=== PATIENT | male | born 1955 | race Caucasian/White ===

== ENCOUNTER 2019-05-20 08:47 | Observation (INO) ==
[2019-05-20] MEDS ORDERED: 0.9 % Sodium Chloride 1,000 ML IVC ONE (09:04)
[2019-05-20] MEDS ORDERED: Ondansetron 4 MG/2 ML VIAL IVP ONE ×3 (09:04→15:32)
--- NOTE | 2019-05-20 09:14 | Emergency Department Note ---
Disposition Clinical Impression: DARREL (acute kidney injury) Nausea & vomiting Qualifiers: Vomiting type: unspecified Vomiting Intractability: non-intractable Qualified Code(s): R11.2 - Nausea with vomiting, unspecified Disposition: Admitted As Inpatient Condition: Good Time of Disposition: 21:18 General Adult HPI - General Chief complaint: ED Nausea/Vomiting/Diarrhea Stated complaint: Nausea and vomiting Time Seen by Provider: 05/20/19 09:01 Source: family Limitations: no limitations - History of Present Illness Pain Scale: 6 - Related Data Home Medications Medication Instructions Recorded Confirmed Albuterol Sulfate [Ventolin Hfa] 2 puff IH Q4H PRN #0 03/28/16 05/20/19 Aspirin 81 mg PO DAILY 03/28/16 05/20/19 Atorvastatin [Lipitor] 80 mg PO HS 03/28/16 05/20/19 Budesonide/Formoterol 80/4.5 2 puff IH Q12H 03/28/16 05/20/19 [Symbicort 80/4.5] Carvedilol [Coreg] 6.25 mg PO BIDWM 03/28/16 05/20/19 Cholecalciferol (Vitamin D3) 3,000 unit PO DAILY 03/28/16 05/20/19 [Vitamin D3] Clopidogrel [Plavix] 75 mg PO DAILY 03/28/16 05/20/19 Lisinopril 10 mg PO DAILY 03/28/16 05/20/19 Nitroglycerin [Nitrostat] 0.4 mg SL Q5M PRN 03/28/16 05/20/19 [place]-3/Dha/Epa/Fish Oil [Fish Oil 1,200 mg PO DAILY #0 03/28/16 05/20/19 1,000 mg Softgel] Ranolazine [Ranexa] 1,000 mg PO BID 03/28/16 05/20/19 raNITIdine HCl [Zantac] 150 mg PO HS 03/28/16 05/20/19 metFORMIN [Glucophage] 500 mg PO DAILY 11/27/16 05/20/19 hydroCHLOROthiazide 50 mg PO DAILY 03/14/19 05/20/19 [Hydrochlorothiazide] Isosorbide MONOnitrate [Isosorbide 10 mg PO TID 05/20/19 05/20/19 Mononitrate] Montelukast [Singulair] 10 mg PO DAILY 05/20/19 05/20/19 Allergies Allergy/AdvReac Type Severity Reaction Status Date / Time Sulfa (Sulfonamide Allergy Rash Verified 03/28/16 04:50 Antibiotics) isosorbide [From Imdur] AdvReac Cramping Verified 03/28/16 04:50 of the Muscles Past Medical History - Past Medical History Medical history: Reports: asthma, cancer, coronary artery disease, GERD, hyperlipidemia, hypertension, kidney stones, myocardial infarction Surgical history: Reports: angioplasty/stent, cholecystectomy Psychiatric history: Reports: no psych history - Social History Smoking Status: Never smoker Smokeless Tobacco Status: No Alcohol use: Reports: none Drug use: Reports: none Physical Exam - General Limitations: no limitations Course Vital Signs Temperature 97.5 F L 05/20/19 08:51 Pulse Rate 61 05/20/19 08:51 Respiratory Rate 18 05/20/19 08:51 Blood Pressure 135/79 05/20/19 08:51 O2 Sat by Pulse Oximetry 100 05/20/19 08:51 Temperature 97.9 F 05/20/19 19:12 Pulse Rate 58 05/20/19 19:12 Respiratory Rate 16 05/20/19 19:12 Blood Pressure 134/74 05/20/19 19:12 O2 Sat by Pulse Oximetry 98 05/20/19 19:12 Oxygen Delivery Oxygen Delivery Room Air Medical Decision Making - Lab Data Result diagrams: 05/20/19 09:20 05/20/19 09:20 Lab Results 05/20/19 05/20/19 05/20/19 Range/Units 09:20 09:20 10:15 WBC 5.6 (4.3-11.1) K/mcL RBC 4.33 (4.19-5.50) M/mcL Hgb 12.5 L (12.9-16.9) g/dL Hct 38.6 (37.5-50.1) % MCV 89.1 (83.0-100.0) fL MCH 28.9 (28.0-33.3) pg MCHC 32.4 (31.6-35.5) g/dL RDW 14.0 (11.5-14.5) % Plt Count 203 (140-400) K/mcL MPV 9.5 (9.4-12.4) fL Immature Gran % 0.5 (0-4) % Seg Neutrophils % 75.2 % Lymphocytes % 14.8 % Monocytes % 7.3 % Eosinophils % 1.8 % Basophils % 0.4 % Neutrophils # 4.2 (1.6-8.9) K/mcL Lymphocytes # 0.8 (0.6-4.6) K/mcL Monocytes # 0.4 (0.0-1.3) K/mcL Eosinophils # 0.1 (0.0-0.6) K/mcL Basophils # 0.0 (0.0-0.2) K/mcL Sodium 138 (136-145) mEq/L Potassium 4.3 (3.5-5.1) mEq/L Chloride 101 (98-107) mEq/L Carbon Dioxide 28 (23-29) mEq/L BUN 41 H (8-23) mg/dL Creatinine 2.20 H (0.70-1.30) mg/dL Est GFR ( Amer) 37 L (> 60) Est GFR (Non-Af Amer) 31 L (> 60) BUN/Creatinine Ratio 19 (6-26) Glucose 118 H (70-105) mg/dL Calculated Osmolality 297 (280-300) Calcium 9.7 (8.6-10.3) mg/dL Total Bilirubin 0.6 (0.3-1.0) mg/dL AST 17 (13-39) Units/L ALT 19 (7-52) Units/L Alkaline Phosphatase 54 (34-104) Units/L Troponin I < 0.03 (< 0.04) ng/mL Serum Total Protein 6.3 L (6.4-8.9) g/dL Albumin 4.0 (3.5-5.7) g/dL Globulin 2.3 L (2.4-3.5) g/dL Albumin/Globulin Ratio 1.7 (1.1-2.2) Lipase 19 (11-82) Units/L Urine Color Yellow (Yellow) Urine Clarity Clear (Clear) Urine pH 5.5 (5.0-8.0) pH Units Ur Specific [place] 1.019 (1.010-1.025) Urine Protein Trace (Neg-Trace) mg/dL Urine Glucose (UA) Normal (Normal) mg/dL Urine Ketones Negative (Negative) mg/dL Urine Blood Negative (Negative) Urine Nitrite Negative (Negative) Urine Bilirubin Negative (Negative) Urine Urobilinogen Normal (Normal) mg/dL Ur Leukocyte Esterase Trace H (Negative) Urine Microscopic RBC 3-5 H (0-3) per hpf Urine Microscopic WBC 0-3 (0-3) per hpf Ur Squamous Epith Cells Many H (None-Few) per lpf Urine Bacteria None Seen (None-Few) per hpf Hyaline Casts Few (None-Few) per lpf Ur Culture Indicated? YES A (NO) Attestation Statement - Attestation Attestation: I reviewed the residents documentation and agree with the residents assessment and plan of care. I have personally had face to face time with the patient. (B rief History, Brief Exam, and MDM) I personally supervised and was present for the queen/critical portions of the following procedures completed by the resident: (add procedures performed here). Face to face time provided Patient arrives complaining of nausea and vomiting. He appears in no acute distress on exam. Triage note and vitals reviewed by me. Patient evaluated in conjunction with the resident physician Dr. Butterfield I attest to supervising the resident physician's interpretation of the ECG
--- NOTE | 2019-05-20 09:35 | Emergency Department Note ---
Disposition Clinical Impression: DARREL (acute kidney injury) Nausea & vomiting Qualifiers: Vomiting type: unspecified Vomiting Intractability: non-intractable Qualified Code(s): R11.2 - Nausea with vomiting, unspecified Disposition: Admitted As Inpatient Condition: Good Forms: ED Satisfaction Letter Time of Disposition: 10:50 General Adult HPI - General Chief complaint: ED Nausea/Vomiting/Diarrhea Stated complaint: Nausea and vomiting Time Seen by Provider: 05/20/19 09:01 Source: patient, family Mode of arrival: ambulatory Limitations: no limitations Nursing Notes Reviewed: Yes Vital Signs Reviewed: Yes - History of Present Illness HPI Narrative: Patient is a 63-year-old male that presents emergency Department with reports of abdominal pain and vomiting. Patient states that he has a history of vomiting and has been treated by his primary care provider. Patient states that he has a history of acid reflux and was initially on omeprazole and has been changed to a different medication and something that coats his stomach. Patient states this has provided relief however over the last 3 or 4 days he has had continued vomiting. Patient states that he has not had any blood in his vomit. Patient states that he has epigastric and left upper quadrant abdominal pain. Patient denies any diarrhea. Patient denies any recent sick contacts. Patient denies any recent travel. Patient states that he has not having any chest pain or shortness of breath. Patient states that he is not having any burning sensation like he usually does with his reflux. Pain Scale: 6 - Related Data Home Medications Medication Instructions Recorded Confirmed Albuterol Sulfate [Ventolin Hfa] 2 puff IH Q4H PRN #0 03/28/16 03/14/19 Aspirin 81 mg PO DAILY 03/28/16 03/14/19 Atorvastatin [Lipitor] 80 mg PO HS 03/28/16 03/14/19 Budesonide/Formoterol 80/4.5 2 puff IH Q12H 03/28/16 03/14/19 [Symbicort 80/4.5] Carvedilol [Coreg] 6.25 mg PO BIDWM 03/28/16 03/14/19 Cholecalciferol (Vitamin D3) 3,000 unit PO DAILY 03/28/16 03/14/19 [Vitamin D3] Clopidogrel [Plavix] 75 mg PO DAILY 03/28/16 03/14/19 Lisinopril 10 mg PO DAILY 03/28/16 03/14/19 Nitroglycerin [Nitrostat] 0.4 mg SL Q5M PRN 03/28/16 03/14/19 [place]-3/Dha/Epa/Fish Oil [Fish Oil 1,200 mg PO DAILY #0 03/28/16 03/14/19 1,000 mg Softgel] Ranolazine [Ranexa] 1,000 mg PO BID 03/28/16 03/14/19 raNITIdine HCl [Zantac] 150 mg PO HS 03/28/16 03/14/19 metFORMIN [Glucophage] 500 mg PO DAILY 11/27/16 03/14/19 hydroCHLOROthiazide 50 mg PO DAILY 03/14/19 03/14/19 [Hydrochlorothiazide] Isosorbide MONOnitrate [Isosorbide 10 mg PO TID 05/20/19 05/20/19 Mononitrate] Montelukast [Singulair] 10 mg PO DAILY 05/20/19 05/20/19 Allergies Allergy/AdvReac Type Severity Reaction Status Date / Time Sulfa (Sulfonamide Allergy Rash Verified 03/28/16 04:50 Antibiotics) isosorbide [From Imdur] AdvReac Cramping Verified 03/28/16 04:50 of the Muscles All systems ED: reviewed and negative except as stated. Constitutional: Reports: fever Cardiovascular: Denies: chest pain Respiratory: Denies: dyspnea Gastrointestinal: Reports: abdominal pain, nausea, vomiting. Denies: diarrhea Genitourinary: Denies: urgency, dysuria, frequency Neurological: Denies: weakness, numbness, paresthesias Past Medical History - Past Medical History Medical history: Reports: asthma, cancer, coronary artery disease, GERD, hyperlipidemia, hypertension, kidney stones, myocardial infarction Surgical history: Reports: angioplasty/stent, cholecystectomy Psychiatric history: Reports: no psych history - Social History Smoking Status: Never smoker Smokeless Tobacco Status: No Alcohol use: Reports: none Drug use: Reports: none Physical Exam - General Limitations: no limitations General appearance: alert, in no apparent distress - Head Head exam: atraumatic, normocephalic - Eye Eye exam: Present: normal appearance, EOMI - Neck Neck exam: Present: normal inspection, full ROM, trachea midline - Respiratory Respiratory exam: Present: normal lung sounds bilaterally. Absent: respiratory distress, wheezes - Abdominal Exam Abdominal exam: Present: soft, tenderness, normal bowel sounds Abdominal tenderness: Present: LUQ, epigastrium, moderate - Neurological Exam Neurological exam: Present: alert, oriented X3 - Psychiatric Psychiatric exam: Present: normal affect, normal mood - Skin Skin exam: Present: warm, dry, intact Course Vital Signs Temperature 97.5 F L 05/20/19 08:51 Pulse Rate 61 05/20/19 08:51 Respiratory Rate 18 05/20/19 08:51 Blood Pressure 135/79 05/20/19 08:51 O2 Sat by Pulse Oximetry 100 05/20/19 08:51 Temperature 97.5 F L 05/20/19 08:51 Pulse Rate 61 05/20/19 08:51 Respiratory Rate 18 05/20/19 08:51 Blood Pressure 135/79 05/20/19 08:51 O2 Sat by Pulse Oximetry 100 05/20/19 08:51 Oxygen Delivery Oxygen Delivery Room Air Medical Decision Making - MDM Narrative Medical decision making narrative: Due the patient presents emergency Department with reports of abdominal pain as well as nausea and vomiting we will obtain basic laboratory testing, CT scan of the abdomen and pelvis provide the patient with IV hydration and antiemetics. Patient has evidence of an acute kidney injury. The main of his laboratory testing is relatively unremarkable. A urinalysis was pending at the time of admission. I called and spoke with the admitting hospitalist Dr. Raphael and she is accepted the patient to their service. Patient be admitted to the hospital this time for further evaluation and management. The patient was offered a GI cocktail here in the emergency department but he did decline due to concern that it may make him throw up. - Medical Records Medical records reviewed: Yes I reviewed the patient's medical records. - Lab Data Lab results reviewed: Yes I reviewed the patient's lab results. Result diagrams: 05/20/19 09:20 05/20/19 09:20 Lab Results 05/20/19 05/20/19 Range/Units 09:20 09:20 WBC 5.6 (4.3-11.1) K/mcL RBC 4.33 (4.19-5.50) M/mcL Hgb 12.5 L (12.9-16.9) g/dL Hct 38.6 (37.5-50.1) % MCV 89.1 (83.0-100.0) fL MCH 28.9 (28.0-33.3) pg MCHC 32.4 (31.6-35.5) g/dL RDW 14.0 (11.5-14.5) % Plt Count 203 (140-400) K/mcL MPV 9.5 (9.4-12.4) fL Immature Gran % 0.5 (0-4) % Seg Neutrophils % 75.2 % Lymphocytes % 14.8 % Monocytes % 7.3 % Eosinophils % 1.8 % Basophils % 0.4 % Neutrophils # 4.2 (1.6-8.9) K/mcL Lymphocytes # 0.8 (0.6-4.6) K/mcL Monocytes # 0.4 (0.0-1.3) K/mcL Eosinophils # 0.1 (0.0-0.6) K/mcL Basophils # 0.0 (0.0-0.2) K/mcL Sodium 138 (136-145) mEq/L Potassium 4.3 (3.5-5.1) mEq/L Chloride 101 (98-107) mEq/L Carbon Dioxide 28 (23-29) mEq/L BUN 41 H (8-23) mg/dL Creatinine 2.20 H (0.70-1.30) mg/dL Est GFR ( Amer) 37 L (> 60) Est GFR (Non-Af Amer) 31 L (> 60) BUN/Creatinine Ratio 19 (6-26) Glucose 118 H (70-105) mg/dL Calculated Osmolality 297 (280-300) Calcium 9.7 (8.6-10.3) mg/dL Total Bilirubin 0.6 (0.3-1.0) mg/dL AST 17 (13-39) Units/L ALT 19 (7-52) Units/L Alkaline Phosphatase 54 (34-104) Units/L Troponin I < 0.03 (< 0.04) ng/mL Serum Total Protein 6.3 L (6.4-8.9) g/dL Albumin 4.0 (3.5-5.7) g/dL Globulin 2.3 L (2.4-3.5) g/dL Albumin/Globulin Ratio 1.7 (1.1-2.2) Lipase 19 (11-82) Units/L - Radiology Data Radiology results reviewed: Yes I reviewed the patient's radiology results. Abdomen/Pelvis CT 05/20/19 09:24 IMPRESSION: No acute non contrast abnormality of the abdomen or pelvis. D/ / Vladislav Kirkpatrick MD / Vladislav Kirkpatrick MD Interpreting Provider: Vladislav Kirkpatrick MD - EKG Data EKG #1 EKG attestation: Yes I reviewed and interpreted this EKG. EKG results narrative: EKG shows a sinus rhythm at a rate of 54 bpm, UT interval of 227, QRS duration 103, QTC of 416. There is no evidence of STEMI on EKG. This is compared to previous EKG on 03/14/19.
[2019-05-20 09:38] LABS: Basophils % 0.4 %; Eosinophils # 0.1 K/mcL (0.0-0.6); Eosinophils % 1.8 %; Hematocrit 38.6 % (37.5-50.1); Hemoglobin 12.5 g/dL (12.9-16.9); Immature Granulocytes % 0.5 % (0-4); Lymphocytes # 0.8 K/mcL (0.6-4.6); Lymphocytes % 14.8 %; Mean Corpuscular HGB Conc 32.4 g/dL (31.6-35.5); Mean Corpuscular Hemoglobin 28.9 pg (28.0-33.3); Mean Corpuscular Volume 89.1 fL (83.0-100.0); Mean Platelet Volume 9.5 fL (9.4-12.4); Monocytes # 0.4 K/mcL (0.0-1.3); Monocytes % 7.3 %; Neutrophils # 4.2 K/mcL (1.6-8.9); Platelet Count 203 K/mcL (140-400); Red Blood Count 4.33 M/mcL (4.19-5.50); Segmented Neutrophils % 75.2 %; White Blood Count 5.6 K/mcL (4.3-11.1)
[2019-05-20 09:50] LABS: Alanine Aminotransferase 19 Units/L (7-52); Albumin/Globulin Ratio 1.7 (1.1-2.2); Alkaline Phosphatase 54 Units/L (34-104); Aspartate Amino Transferase 17 Units/L (13-39); BUN/Creatinine Ratio 19 (6-26); Bilirubin,Total 0.6 mg/dL (0.3-1.0); Blood Urea Nitrogen 41 mg/dL (8-23); Calcium 9.7 mg/dL (8.6-10.3); Carbon Dioxide 28 mEq/L (23-29); Chloride 101 mEq/L (98-107); Globulin 2.3 g/dL (2.4-3.5); Glucose 118 mg/dL (70-105); Osmolality,Calculated 297 (280-300); Potassium 4.3 mEq/L (3.5-5.1); Sodium 138 mEq/L (136-145); Total Protein 6.3 g/dL (6.4-8.9); eGFR For African Americans 37 (> 60); eGFR For Non-African Americans 31 (> 60)
[2019-05-20 09:58] LABS: Troponin I < 0.03 ng/mL (< 0.04)
[2019-05-20 10:39] LABS: Lipase 19 Units/L (11-82)
[2019-05-20 10:49] LABS: Bilirubin,Urine Negative (Negative); Blood,Urine Negative (Negative); Clarity,Urine Clear (Clear); Color,Urine Yellow (Yellow); Glucose,Urine (UA) Normal (Normal); Ketones,Urine Negative (Negative); Leukocyte Esterase,Urine Trace (Negative); Nitrite,Urine Negative (Negative); PH,Urine 5.5 pH Units (5.0-8.0); Protein,Urine Trace mg/dL (Neg-Trace); Specific Gravity,Urine 1.019 (1.010-1.025); Urobilinogen,Urine Normal (Normal)
[2019-05-20 10:52] LABS: Bacteria,Urine None Seen per hpf (None-Few); Hyaline Casts,Urine Few per lpf (None-Few); Squamous Epithelial Cell,Urine Many per lpf (None-Few); WBC,Urine 0-3 per hpf (0-3)
[2019-05-20] MEDS ORDERED: Naloxone 0.4 MG/ML INJ IVP PRN (12:01)
--- NOTE | 2019-05-20 12:01 | Internal Med History&Physical ---
Date of Encounter: 05/20/19 Time of Encounter: 12:01 Internal Medicine - H&P: HPI Chief complaint: abdominal pain and vomiting History of present illness: Mr. Hicks is a 63 year old male with PMH of patient who presented with abdominal pain and vomiting that lasted for the last 3 weeks. The patient stated that he was evaluated by the his primary care provider who treated him with omeprazole and carafate was temporary relief. The patient stated that for the last several days he started experiencing progressive worsening of nausea associated with nonbilious nonbloody vomiting as well as left upper quadrant pain. The patient was evaluated by the ER staff and he is a relative echo suggestive of acute kidney injury. The patient denies diarrhea, hematochezia, melena and change of urinary habits. The patient was admitted for further evaluation and management o f persistent nausea and vomiting and acute kidney injury. Past Med Surg Social Fam HX - Past Medical History Medical history: asthma, cancer, coronary artery disease, GERD, hyperlipidemia, hypertension, kidney stones, myocardial infarction Additional medical history: skin cancer, heart attack, hiatal hernia, kidney stone, Barretts esophagus Psychiatric history: no psych history - Past Surgical History Surgical History: angioplasty/stent, cholecystectomy Additional surgical history: egd, esophagus stretched - Social History Smoking Status: Never smoker Smokeless Tobacco Status: No Alcohol use: none Drug use: none - Family History Mother Hx Family Cardiac Disorders: Yes Father Hx Family Cardiac Disorders: Yes Hx Family Cancer: Yes (bladder) Internal Medicine - H&P: Meds Aspirin 81 mg PO DAILY 03/28/16 [History] Atorvastatin [Lipitor] 80 mg PO HS 03/28/16 [History] Budesonide/Formoterol 80/4.5 [Symbicort 80/4.5] 2 puff IH BID 03/28/16 [H istory] Carvedilol [Coreg] 6.25 mg PO BIDWM 03/28/16 [History] Cholecalciferol (Vitamin D3) [Vitamin D3] 3,000 unit PO DAILY 03/28/16 [History] Clopidogrel [Plavix] 75 mg PO DAILY 03/28/16 [History] Lisinopril 10 mg PO DAILY 03/28/16 [History] Nitroglycerin [Nitrostat] 0.4 mg SL Q5M PRN 03/28/16 [History] [place]-3/Dha/Epa/Fish Oil [Fish Oil 1,000 mg Softgel] 1,200 mg PO DAILY #0 03/28/16 [History] Ranolazine [Ranexa] 1,000 mg PO BID 03/28/16 [History] metFORMIN [Glucophage] 500 mg PO DAILY 11/27/16 [History] Montelukast [Singulair] 10 mg PO DAILY PRN 05/20/19 [History] Albuterol Sulfate [Proair Hfa] 2 puff IH Q4H PRN 05/21/19 [History] Isosorbide DInitrate [Isosorbide Dinitrate] 10 mg PO TID 05/21/19 [History] Ranitidine HCl [Acid [employer]] 150 mg PO DAILY 05/21/19 [History] Omeprazole [PriLOSEC] 40 mg PO BID #60 cap 05/24/19 [Rx] Ondansetron HCl [Zofran] 4 mg PO Q8HR PRN #20 tab 05/24/19 [Rx] Sucralfate [Carafate] 1 gm PO QIDAC #120 tablet 05/24/19 [Rx] Allergy/AdvReac Type Severity Reaction Status Date / Time Sulfa (Sulfonamide Allergy Rash Verified 05/21/19 12:37 Antibiotics) isosorbide [From Imdur] AdvReac Cramping Verified 05/21/19 12:37 of the Muscles All Systems PM: A 10-system review of systems was performed and is negative for pertinent findings except as documented above in the HPI. - Constitutional Vitals: Temp Pulse Resp BP Pulse Ox 97.5 F L 55 18 111/77 100 05/20/19 08:51 05/20/19 11:01 05/20/19 11:01 05/20/19 11:01 05/20/19 11:01 General appearance: Present: A&O X 3 Exam: ` - Neck Neck exam general surgery: Present: supple, trachea midline. Absent: lymphadenopathy - Respiratory Respiratory exam: Present: CTAB. Absent: accessory muscle use, rales, rhonchi, wheezes - Cardiovascular Cardiovascular exam: Present: RRR, +S1, +S2. Absent: diastolic murmur, gallop, rubs, systolic murmur - GI/Abdominal GI/Abdominal exam: Present: normal bowel sounds, soft, no peritoneal signs. Absent: distended, tenderness - Extremities Exam Extremities exam: Present: warm, radial pulses palpable and symmetrical. Absent: calf tenderness, cyanotic, pedal edema Internal Med - H&P Results - Labs CBC & Chem 7: 05/22/19 03:36 05/24/19 06:38 Labs: Short CBC 05/20/19 Range/Units 09:20 WBC 5.6 (4.3-11.1) K/mcL Hgb 12.5 L (12.9-16.9) g/dL Hct 38.6 (37.5-50.1) % Plt Count 203 (140-400) K/mcL Neutrophils # 4.2 (1.6-8.9) K/mcL BMP 05/20/19 09:20 Sodium 138 Potassium 4.3 Chloride 101 Carbon Dioxide 28 BUN 41 H Creatinine 2.20 H Glucose 118 H Calcium 9.7 Cardiac Enzymes 05/20/19 Range/Units 09:20 Troponin I < 0.03 (< 0.04) ng/mL Liver Function 05/20/19 Range/Units 09:20 Total Bilirubin 0.6 (0.3-1.0) mg/dL AST 17 (13-39) Units/L ALT 19 (7-52) Units/L Alkaline Phosphatase 54 (34-104) Units/L Albumin 4.0 (3.5-5.7) g/dL Urine 05/20/19 Range/Units 10:15 Urine Color Yellow (Yellow) Urine Clarity Clear (Clear) Urine pH 5.5 (5.0-8.0) pH Units Ur Specific [place] 1.019 (1.010-1.025) Urine Protein Trace (Neg-Trace) mg/dL Urine Glucose (UA) Normal (Normal) mg/dL - Impressions ITS Impressions Abdomen/Pelvis CT 05/20/19 09:24 IMPRESSION: No acute non contrast abnormality of the abdomen or pelvis. D/ / Vladislav Kirkpatrick MD / Vladislav Kirkpatrick MD Interpreting Provider: Vladislav Kirkpatrick MD - Assessment and Plan (1) Nausea & vomiting Status: Acute Assessment and plan: CT abdomen pelvis without IV or oral contrast showed no acute abnormalities. - We will start Patient currently on IV PPI and IV antiemetic for nausea. - GI was consulted for further evaluation Qualifiers: Vomiting type: unspecified Vomiting Intractability: non-intractable Qualified Code(s): R11.2 - Nausea with vomiting, unspecified (2) DARREL (acute kidney injury) Status: Acute Assessment and plan: most likely secondary to volume depletion in the setting of nausea and vomiting and decreased oral intake, as well as being on diuretic regimen and YENY inhibi tors. Will start patient on cautious IV hydration with isotonic saline and giving his underlying cardiac disease. hold diuretics and yeny inhibitors for now. Renal dosing of medication as per current GFR. Avoid nephrotoxins meds. (3) Hypertension Status: Chronic Assessment and plan: N/V DD *Gastroenteritis *Gastritis *PUD *Pancreatitis *Cholecystitis *Diverticulitis *UTI PLAN: - IVF - Urine C+S - CBCD, BMP in am - Zofran (ondansetron) PRN - GI consulted N they stated that they will see patient in consult, however if patient's symptoms is controlled while inpatient they might consider scheduling his endoscopy as an outpatient. Qualifiers: Hypertension type: essential hypertension Qualified Code(s): I10 - Essential (primary) hypertension (4) Asthma Status: Chronic Assessment and plan: we'll continue home medications Qualifiers: Asthma severity: unspecified severity Asthma complication type: uncomplicated Qualified Code(s): J45.909 - Unspecified asthma, uncomplicated (5) Hyperlipidemia Status: Chronic Assessment and plan: would obtain fasting lipid profile, and continue home statin Qualifiers: Hyperlipidemia type: unspecified Qualified Code(s): E78.5 - Hyperlipidemia, unspecified (6) Coronary artery disease Status: Chronic Assessment and plan: we'll continue home medication. The patient is pain-free and EKG was no significant ST T wave changes. Qualifiers: Coronary Disease-Associated Artery/Lesion type: [place] artery [place] vs. transplanted heart: [place] heart Associated angina: with unstable angina Qualified Code(s): I25.110 - Atherosclerotic heart disease of [place] coronary artery with unstable angina pectoris (7) Gastroesophageal reflux disease Status: Chronic Qualifiers: Esophagitis presence: esophagitis presence not specified Qualified Code(s): K21.9 - Gastro-esophageal reflux disease without esophagitis (8) DVT prophylaxis Status: Acute (9) NSTEMI (non-ST elevated myocardial infarction) Status: Acute - Time Spent With Patient Total time spent is greater than 50% in coordination of care (as documented) at patient's floor/unit and/or counseling patient:
[2019-05-20] MEDS ORDERED: Acetaminophen 325 MG TABLET PO PRN (12:38)
[2019-05-20] MEDS ORDERED: Ondansetron 4 MG/2 ML VIAL IVP PRN ×2 (12:38→16:16)
--- NOTE | 2019-05-20 12:53 | Electrocardiograph Report ---
[facility] Test Date: 2019-05-20 Pat Name: Franky Hicks Department: EXAM6 Room: 3B34 Gender: M Drag Sawyer: : 1955 Requested By: Gordon Butterfield Order Number: [id number] Reading MD: Richie Ventura Measurements Intervals [place] Rate: 54 P: 33 MS: 227 QRS: 16 QRSD: 103 T: 42 QT: 439 QTc: 416 Interpretive Statements Sinus rhythm Prolonged MS interval Electronically Signed On 05-20-2019 12:52:02 EDT by Richie Ventura
[2019-05-20] MEDS: cefTRIAXone 2,000 MG in Water for inj. (sterile) 20 ML IVP SCH (14:16)
[2019-05-20] MEDS: 0.9 % Sodium Chloride 1,000 ML IVC SCH ×2 (14:17→22:34)
[2019-05-20 14:37] LABS: Bilirubin,Urine Negative (Negative); Blood,Urine Negative (Negative); Clarity,Urine Clear (Clear); Color,Urine Yellow (Yellow); Glucose,Urine (UA) Normal (Normal); Ketones,Urine Negative (Negative); Leukocyte Esterase,Urine Negative (Negative); Nitrite,Urine Negative (Negative); PH,Urine 5.5 pH Units (5.0-8.0); Protein,Urine Negative (Neg-Trace); Specific Gravity,Urine 1.019 (1.010-1.025); Urobilinogen,Urine Normal (Normal)
[2019-05-20] MEDS: Ondansetron 4 MG/2 ML VIAL IVP PRN (21:03)
[2019-05-21 02:18] LABS: Basophils % 0.4 %; Eosinophils # 0.1 K/mcL (0.0-0.6); Eosinophils % 2.1 %; Hematocrit 35.1 % (37.5-50.1); Hemoglobin 11.5 g/dL (12.9-16.9); Immature Granulocytes % 0.2 % (0-4); Lymphocytes # 1.1 K/mcL (0.6-4.6); Lymphocytes % 22.9 %; Mean Corpuscular HGB Conc 32.8 g/dL (31.6-35.5); Mean Corpuscular Hemoglobin 29.6 pg (28.0-33.3); Mean Corpuscular Volume 90.5 fL (83.0-100.0); Mean Platelet Volume 9.4 fL (9.4-12.4); Monocytes # 0.4 K/mcL (0.0-1.3); Monocytes % 7.9 %; Neutrophils # 3.2 K/mcL (1.6-8.9); Platelet Count 162 K/mcL (140-400); Red Blood Count 3.88 M/mcL (4.19-5.50); Red Cell Distribution Width 13.8 % (11.5-14.5); Segmented Neutrophils % 66.5 %; White Blood Count 4.8 K/mcL (4.3-11.1)
[2019-05-21 02:30] LABS: INR 1.1
[2019-05-21 02:32] LABS: Activated Partial Thrombo Time 32.2 Seconds (26.0-36.0)
[2019-05-21 02:38] LABS: Albumin 3.5 g/dL (3.5-5.7); Albumin/Globulin Ratio 1.7 (1.1-2.2); Bilirubin,Total 0.5 mg/dL (0.3-1.0); Calcium 8.7 mg/dL (8.6-10.3); Globulin 2.1 g/dL (2.4-3.5); Magnesium 1.8 mg/dL (1.6-2.6); Phosphorous 2.9 mg/dL (2.7-4.5); Potassium 3.5 mEq/L (3.5-5.1); Total Protein 5.6 g/dL (6.4-8.9)
[2019-05-21 03:04] LABS: Chol/HDL Ratio 4.1 (0-4.9)
[2019-05-21] MEDS ORDERED: Nitroglycerin 0.4 MG TAB.SUBL SL PRN (05:23)
[2019-05-21] MEDS ORDERED: Budesonide/Formoterol 80/4.5 MDI IH SCH (06:00)
[2019-05-21] MEDS: Ondansetron 4 MG/2 ML VIAL IVP PRN ×2 (07:22→16:50)
[2019-05-21] MEDS: Budesonide/Formoterol 80/4.5 MDI IH SCH ×2 (07:57→20:17)
[2019-05-21] MEDS: Aspirin 81 MG TAB.CHEW PO SCH (08:37)
[2019-05-21] MEDS: Ranolazine 500 MG TAB.ER.12H PO SCH ×2 (08:37→20:08)
[2019-05-21] MEDS: Pantoprazole 40 MG VIAL IVP SCH (08:38)
[2019-05-21] MEDS: D5% in 0.45% NACL w KCl 10 MEQ/1,000 ML MLS IVC SCH ×2 (08:38→18:17)
[2019-05-21] MEDS: (Fish Oil 1,000 Mg Softgel) PO SCH (08:40)
[2019-05-21] MEDS: NON-FORMULARY MEDICATION 1 EACH EACH (Cholecalciferol (Vitamin D3) [Vitamin D3] 1,000 UNIT PO SCH (08:40)
--- NOTE | 2019-05-21 09:03 | Internal Med Progress Note ---
Hospitalist Progress Note - Encounter Date of Encounter: 05/21/19 Time of Encounter: 09:01 - Subjective Interval History: Mr. Hicks is a 63 year old male with PMH of patient who presented with abdominal pain and vomiting that lasted for the last 3 weeks. The patient stated that he was evaluated by the his primary care provider who treated him with omeprazole and carafate was temporary relief. The patient stated that for the last several days he started experiencing progressive worsening of nausea associated with nonbilious nonbloody vomiting as well as left upper quadrant pain. The patient was evaluated by the ER staff and labs showed acute kidney injury. The patient denies diarrhea, hematochezia, melena and change of urinary habits. Patient seen and examined in the room. He reported vomiting with bile content. Denies abdominal pain. Patient stated he will try to drink more water. - Exam Vitals: Temp Pulse Resp BP Pulse Ox 98.0 F 62 16 134/79 98 05/21/19 06:54 05/21/19 06:54 05/21/19 07:57 05/21/19 06:54 05/21/19 07:57 Exam: PHYSICAL EXAMINATION: GENERAL APPEARANCE: The patient is alert, oriented and in no acute distress. HEENT: Head is normocephalic. The sinuses are nontender. Pupils are equal and reactive. The nares are patent. Oropharynx clear without lesions. NECK: Supple without lymphadenopathy. HEART: Regular rate and rhythm. LUNGS: No crackles or wheezes are heard. ABDOMEN: Soft, nontender, nondistended with good bowel sounds heard. Inguinal area is normal. EXTREMITIES: Without cyanosis, clubbing or edema. NEUROLOGICAL: Gross nonfocal. SKIN: Warm and dry without any rash. - Assessment and Plan (1) Hypertension Current Visit: No Status: Chronic Assessment and Plan: BP controlled, continue current medications. (2) Asthma Current Visit: No Status: Chronic Assessment and Plan: Patient denies respiratory symptoms, continue home medications (3) Hyperlipidemia Current Visit: No Status: Chronic Assessment and Plan: would obtain fasting lipid profile, and continue home statin (4) Coronary artery disease Current Visit: No Status: Chronic Assessment and Plan: The patient is pain-free and EKG was no significant ST T wave changes. Continue home medications. (5) Gastroesophageal reflux disease Current Visit: No Status: Chronic (6) DVT prophylaxis Current Visit: No Status: Acute (7) NSTEMI (non-ST elevated myocardial infarction) Current Visit: No Status: Acute (8) DARREL (acute kidney injury) Current Visit: Yes Status: Acute Assessment and Plan: most likely secondary to volume to finish and in the setting of nausea and vomiting and decreased oral intake, as well as being diuretic regimen and Carl[place] inhibitors. Will start patient on cautious IV hydration with isotonic saline and giving his underlying cardiac disease. hold diuretics and carlton inhibitors for now. Renal dosing of medication as with current GFR. Avoid nephrotoxins meds. (9) Nausea & vomiting Current Visit: Yes Status: Acute Assessment and Plan: Unknown etiology. CT abdomen pelvis without IV or oral contrast showed no acute pathologies. Patient currently on IV PPI and IV medication for nausea. Urine drug screen ordered. GI following, appreciate help. DVT Prophylaxis: Heparin subcutaneous. - Time Spent with Patient Total time spent is greater than 50% in coordination of care (as documented) at patient's floor/unit and/or counseling patient: Greater than 35 minutes Plan of Care Discussed with: patient Internal Medicine: Result - Labs CBC & Chem 7: 05/21/19 01:48 05/21/19 01:48 Labs: Short CBC 05/20/19 05/21/19 Range/Units 09:20 01:48 WBC 5.6 4.8 (4.3-11.1) K/mcL Hgb 12.5 L 11.5 L (12.9-16.9) g/dL Hct 38.6 35.1 L (37.5-50.1) % Plt Count 203 162 (140-400) K/mcL Neutrophils # 4.2 3.2 (1.6-8.9) K/mcL BMP 05/20/19 05/21/19 09:20 01:48 Sodium 138 135 L Potassium 4.3 3.5 Chloride 101 105 Carbon Dioxide 28 24 BUN 41 H 38 H Creatinine 2.20 H 1.84 H Glucose 118 H 92 Calcium 9.7 8.7 Cardiac Enzymes 05/20/19 Range/Units 09:20 Troponin I < 0.03 (< 0.04) ng/mL Liver Function 05/20/19 05/21/19 Range/Units 09:20 01:48 Total Bilirubin 0.6 0.5 (0.3-1.0) mg/dL AST 17 15 (13-39) Units/L ALT 19 15 (7-52) Units/L Alkaline Phosphatase 54 49 (34-104) Units/L Albumin 4.0 3.5 (3.5-5.7) g/dL Urine 05/20/19 05/20/19 Range/Units 10:15 14:20 Urine Color Yellow Yellow (Yellow) Urine Clarity Clear Clear (Clear) Urine pH 5.5 5.5 (5.0-8.0) pH Units Ur Specific Drift 1.019 1.019 (1.010-1.025) Urine Protein Trace Negative (Neg-Trace) mg/dL Urine Glucose (UA) Normal Normal (Normal) mg/dL - ABG Interpretation ABG results: PT/INR, D-dimer PT 12.0 Seconds (9.4-12.1) 05/21/19 01:48 - Impressions Impressions Abdomen/Pelvis CT 05/20/19 09:24 IMPRESSION: No acute non contrast abnormality of the abdomen or pelvis. D/ / Vladislav Kirkpatrick MD / Vladislav Kirkpatrick MD Interpreting Provider: Vladislav Kirkpatrick MD Consult Discharge Plan - Plan Referrals: Yasmany Robb DO [Primary Care Provider] - (1) Hypertension Qualifiers: Hypertension type: essential hypertension Qualified Code(s): I10 - Essential (primary) hypertension (2) Asthma Qualifiers: Asthma severity: mild intermittent Asthma complication type: uncomplicated (3) Hyperlipidemia Qualifiers: Hyperlipidemia type: unspecified Qualified Code(s): E78.5 - Hyperlipidemia, unspecified (4) Coronary artery disease Qualifiers: Coronary Disease-Associated Artery/Lesion type: [place] artery [place] vs. tr ansplanted heart: [place] heart Associated angina: with unstable angina Qualified Code(s): I25.110 - Atherosclerotic heart disease of [place] coronary artery with unstable angina pectoris (5) Gastroesophageal reflux disease Qualifiers: Esophagitis presence: esophagitis presence not specified Qualified Code(s): K21.9 - Gastro-esophageal reflux disease without esophagitis (9) Nausea & vomiting Qualifiers: Vomiting type: unspecified Vomiting Intractability: non-intractable Qualified Code(s): R11.2 - Nausea with vomiting, unspecified
[2019-05-21 10:44] LABS: Amphetamine Screen,Urine Negative ng/mL (Cutoff=1000); Barbiturate Screen,Urine Negative ng/mL (Cutoff=200); Benzodiazepines Screen,Urine Negative ng/mL (Cutoff=200); Cannabinoid Screen,Urine Negative ng/mL (Cutoff = 50); Cocaine Screen,Urine Negative ng/mL (Cutoff= 300); Opiate Screen,Urine Negative ng/mL (Cutoff=300); Phencyclidine Screen,Urine Negative ng/mL (Cutoff=25)
[2019-05-21] MEDS: cefTRIAXone 2,000 MG in Water for inj. (sterile) 20 ML IVP SCH (14:47)
[2019-05-21] MEDS: *HR* Heparin 5,000 UNIT/ML VIAL SQ SCH (16:50)
[2019-05-21] MEDS ORDERED: Famotidine 20 MG TABLET PO SCH (21:00)
[2019-05-22 04:11] LABS: Hematocrit 34.1 % (37.5-50.1); Mean Corpuscular HGB Conc 32.3 g/dL (31.6-35.5); Mean Corpuscular Hemoglobin 29.2 pg (28.0-33.3); Mean Corpuscular Volume 90.5 fL (83.0-100.0); Mean Platelet Volume 9.5 fL (9.4-12.4); Platelet Count 156 K/mcL (140-400); Red Blood Count 3.77 M/mcL (4.19-5.50); Red Cell Distribution Width 13.7 % (11.5-14.5); White Blood Count 4.3 K/mcL (4.3-11.1)
[2019-05-22] MEDS: D5% in 0.45% NACL w KCl 10 MEQ/1,000 ML MLS IVC SCH ×3 (04:17→23:23)
[2019-05-22] MEDS: *HR* Heparin 5,000 UNIT/ML VIAL SQ SCH ×2 (04:18→15:51)
[2019-05-22 04:22] LABS: Calcium 8.7 mg/dL (8.6-10.3); Potassium 3.7 mEq/L (3.5-5.1)
[2019-05-22] MEDS: Budesonide/Formoterol 80/4.5 MDI IH SCH ×2 (07:49→21:59)
[2019-05-22] MEDS: Ranolazine 500 MG TAB.ER.12H PO SCH ×2 (08:44→21:02)
[2019-05-22] MEDS: Pantoprazole 40 MG VIAL IVP SCH (08:45)
[2019-05-22] MEDS: (Fish Oil 1,000 Mg Softgel) PO SCH (08:45)
[2019-05-22] MEDS: Aspirin 81 MG TAB.CHEW PO SCH (08:45)
[2019-05-22] MEDS: NON-FORMULARY MEDICATION 1 EACH EACH (Cholecalciferol (Vitamin D3) [Vitamin D3] 1,000 UNIT PO SCH (08:47)
--- NOTE | 2019-05-22 09:25 | Internal Med Progress Note ---
Hospitalist Progress Note - Encounter Date of Encounter: 05/22/19 Time of Encounter: 09:23 - Subjective Interval History: Mr. Hicks is a 63 year old male with PMH of patient who presented with abdominal pain and vomiting that lasted for the last 3 weeks. The patient stated that he was evaluated by the his primary care provider who treated him with omeprazole and carafate was temporary relief. The patient stated that for the last several days he started experiencing progressive worsening of nausea associated with nonbilious nonbloody vomiting as well as left upper quadrant pain. The patient was evaluated by the ER staff and labs showed acute kidney injury. The patient denies diarrhea, hematochezia, melena and change of urinary habits. Patient seen and examined in the room. He reported vomiting with bile content. Denies abdominal pain. Patient stated he will try to drink more water. - Exam Vitals: Temp Pulse Resp BP Pulse Ox 98.3 F 68 16 117/78 99 05/22/19 07:29 05/22/19 07:29 05/22/19 07:51 05/22/19 07:29 05/22/19 07:51 Exam: PHYSICAL EXAMINATION: GENERAL APPEARANCE: The patient is alert, oriented and in no acute distress. HEENT: Head is normocephalic. The sinuses are nontender. Pupils are equal and reactive. The nares are patent. Oropharynx clear without lesions. NECK: Supple without lymphadenopathy. HEART: Regular rate and rhythm. LUNGS: No crackles or wheezes are heard. ABDOMEN: Soft, nontender, nondistended with good bowel sounds heard. Inguinal area is normal. EXTREMITIES: Without cyanosis, clubbing or edema. NEUROLOGICAL: Gross nonfocal. SKIN: Warm and dry without any rash. - Assessment and Plan (1) Hypertension Current Visit: No Status: Chronic Assessment and Plan: BP controlled, continue current medications. (2) Asthma Current Visit: No Status: Chronic Assessment and Plan: Patient denies respiratory symptoms, continue home medications (3) Hyperlipidemia Current Visit: No Status: Chronic Assessment and Plan: would obtain fasting lipid profile, and continue home statin (4) Coronary artery disease Current Visit: No Status: Chronic Assessment and Plan: The patient is pain-free and EKG was no significant ST T wave changes. Continue home medications. (5) Gastroesophageal reflux disease Current Visit: No Status: Chronic (6) DVT prophylaxis Current Visit: No Status: Acute (7) NSTEMI (non-ST elevated myocardial infarction) Current Visit: No Status: Acute (8) DARREL (acute kidney injury) Current Visit: Yes Status: Acute Assessment and Plan: Creatinine trending down, currently at 1.58. Continue IV hydration. (9) Nausea & vomiting Current Visit: Yes Status: Acute Assessment and Plan: Unknown etiology. CT abdomen pelvis without IV or oral contrast showed no acute pathologies. Patient currently on IV PPI and IV medication for nausea. GI following, appreciate help. DVT Prophylaxis: Heparin subcutaneous. - Time Spent with Patient Total time spent is greater than 50% in coordination of care (as documented) at patient's floor/unit and/or counseling patient: Greater than 35 minutes Plan of Care Discussed with: patient Internal Medicine: Result - Labs CBC & Chem 7: 05/22/19 03:36 05/22/19 03:36 Labs: Short CBC 05/22/19 Range/Units 03:36 WBC 4.3 (4.3-11.1) K/mcL Hgb 11.0 L (12.9-16.9) g/dL Hct 34.1 L (37.5-50.1) % Plt Count 156 (140-400) K/mcL BMP 05/22/19 03:36 Sodium 138 Potassium 3.7 Chloride 106 Carbon Dioxide 25 BUN 29 H Creatinine 1.54 H Glucose 106 H Calcium 8.7 - ABG Interpretation ABG results: PT/INR, D-dimer PT 12.0 Seconds (9.4-12.1) 05/21/19 01:48 Consult Discharge Plan - Plan Referrals: Yasmany Robb DO [Primary Care Provider] - ____ (1) Hypertension Qualifiers: Hypertension type: essential hypertension Qualified Code(s): I10 - Essential (primary) hypertension (2) Asthma Qualifiers: Asthma severity: mild intermittent Asthma complication type: uncomplicated (3) Hyperlipidemia Qualifiers: Hyperlipidemia type: unspecified Qualified Code(s): E78.5 - Hyperlipidemia, unspecified (4) Coronary artery disease Qualifiers: Coronary Disease-Associated Artery/Lesion type: [place] artery [place] vs. transplanted heart: [place] heart Associated angina: with unstable angina Qualified Code(s): I25.110 - Atherosclerotic heart disease of [place] coronary artery with unstable angina pectoris (5) Gastroesophageal reflux disease Qualifiers: Esophagitis presence: esophagitis presence not specified Qualified Code(s): K21.9 - Gastro-esophageal reflux disease without esophagitis (9) Nausea & vomiting Qualifiers: Vomiting type: unspecified Vomiting Intractability: non-intractable Qualified Code(s): R11.2 - Nausea with vomiting, unspecified
[2019-05-22] MEDS: cefTRIAXone 2,000 MG in Water for inj. (sterile) 20 ML IVP SCH (13:05)
[2019-05-22] MEDS: Ondansetron 4 MG/2 ML VIAL IVP PRN (20:16)
[2019-05-23] MEDS: *HR* Heparin 5,000 UNIT/ML VIAL SQ SCH ×2 (05:03→18:53)
[2019-05-23 07:50] LABS: BUN/Creatinine Ratio 15 (6-26); Blood Urea Nitrogen 21 mg/dL (8-23); Carbon Dioxide 25 mEq/L (23-29); Chloride 104 mEq/L (98-107); Glucose 115 mg/dL (70-105); Osmolality,Calculated 290 (280-300); Potassium 4.3 mEq/L (3.5-5.1); Sodium 138 mEq/L (136-145); eGFR For African Americans > 60 (> 60); eGFR For Non-African Americans 53 (> 60)
[2019-05-23] MEDS: Budesonide/Formoterol 80/4.5 MDI IH SCH ×2 (07:51→20:25)
[2019-05-23] MEDS: Aspirin 81 MG TAB.CHEW PO SCH (08:58)
[2019-05-23] MEDS: (Fish Oil 1,000 Mg Softgel) PO SCH (08:58)
[2019-05-23] MEDS: Ranolazine 500 MG TAB.ER.12H PO SCH ×2 (08:58→22:02)
[2019-05-23] MEDS: Pantoprazole 40 MG VIAL IVP SCH (08:58)
[2019-05-23] MEDS: NON-FORMULARY MEDICATION 1 EACH EACH (Cholecalciferol (Vitamin D3) [Vitamin D3] 1,000 UNIT PO SCH (09:01)
[2019-05-23] MEDS: Ondansetron 4 MG/2 ML VIAL IVP PRN (09:02)
[2019-05-23] MEDS: Cholecalciferol (D-3) 1,000 UNIT (25MCG) TABLET PO SCH (09:40)
--- NOTE | 2019-05-23 12:45 | Internal Med Progress Note ---
Hospitalist Progress Note - Encounter Date of Encounter: 05/23/19 Time of Encounter: 12:43 - Subjective Interval History: Mr. Hicks is a 63 year old male with PMH of patient who presented with abdominal pain and vomiting that lasted for the last 3 weeks. The patient stated that he was evaluated by the his primary care provider who treated him with omeprazole and carafate was temporary relief. The patient stated that for the last several days he started experiencing progressive worsening of nausea associated with nonbilious nonbloody vomiting as well as left upper quadrant pain. The patient was evaluated by the ER staff and labs showed acute kidney injury. The patient denies diarrhea, hematochezia, melena and change of urinary habits. Patient seen and examined in the room. He reported vomiting with bile content. Denies abdominal pain. Patient stated he will try to drink more water. - Exam Vitals: Temp Pulse Resp BP Pulse Ox 97.9 F 63 16 124/76 99 05/23/19 11:39 05/23/19 11:39 05/23/19 11:39 05/23/19 11:39 05/23/19 11:39 Exam: PHYSICAL EXAMINATION: GENERAL APPEARANCE: The patient is alert, oriented and in no acute distress. HEENT: Head is normocephalic. The sinuses are nontender. Pupils are equal and reactive. The nares are patent. Oropharynx clear without lesions. NECK: Supple without lymphadenopathy. HEART: Regular rate and rhythm. LUNGS: No crackles or wheezes are heard. ABDOMEN: Soft, nontender, nondistended with good bowel sounds heard. Inguinal area is normal. EXTREMITIES: Without cyanosis, clubbing or edema. NEUROLOGICAL: Gross nonfocal. SKIN: Warm and dry without any rash. - Assessment and Plan (1) Hypertension Current Visit: No Status: Chronic Assessment and Plan: BP controlled, continue current medications. (2) Asthma Current Visit: No Status: Chronic Assessment and Plan: Patient denies respiratory symptoms, continue home medications (3) Hyperlipidemia Current Visit: No Status: Chronic Assessment and Plan: would obtain fasting lipid profile, and continue home statin (4) Coronary artery disease Current Visit: No Status: Chronic Assessment and Plan: The patient is pain-free and EKG was no significant ST T wave changes. Continue home medications. (5) Gastroesophageal reflux disease Current Visit: No Status: Chronic (6) DVT prophylaxis Current Visit: No Status: Acute (7) NSTEMI (non-ST elevated myocardial infarction) Current Visit: No Status: Acute (8) DARREL (acute kidney injury) Current Visit: Yes Status: Acute Assessment and Plan: Creatinine trending down, currently at 1.37. Continue IV hydration. (9) Nausea & vomiting Current Visit: Yes Status: Acute Assessment and Plan: Unknown etiology. CT abdomen pelvis without IV or oral contrast showed no acute pathologies. Patient currently on IV PPI and IV medication for nausea. GI following, appreciate help. DVT Prophylaxis: Heparin subcutaneous. - Time Spent with Patient Total time spent is greater than 50% in coordination of care (as documented) at patient's floor/unit and/or counseling patient: Greater than 35 minutes Plan of Care Discussed with: patient Internal Medicine: Result - Labs CBC & Chem 7: 05/22/19 03:36 05/23/19 06:12 Labs: BMP 05/23/19 06:12 Sodium 138 Potassium 4.3 Chloride 104 Carbon Dioxide 25 BUN 21 Creatinine 1.37 H Glucose 115 H Calcium 9.0 - ABG Interpretation ABG results: PT/INR, D-dimer PT 12.0 Seconds (9.4-12.1) 05/21/19 01:48 Consult Discharge Plan - Plan Referrals: Yasmany Robb DO [Primary Care Provider] - (Appt has been requested ) (1) Hypertension Qualifiers: Hypertension type: essential hypertension Qualified Code(s): I10 - Essential (primary) hypertension (2) Asthma Qualifiers: Asthma severity: mild intermittent Asthma complication type: uncomplicated (3) Hyperlipidemia Qualifiers: Hyperlipidemia type: unspecified Qualified Code(s): E78.5 - Hyperlipidemia, unspecified (4) Coronary artery disease Qualifiers: Coronary Disease-Associated Artery/Lesion type: [place] artery [place] vs. transplanted heart: [place] heart Associated angina: with unstable angina Qualified Code(s): I25.110 - Atherosclerotic heart disease of [place] coronary artery with unstable angina pectoris (5) Gastroesophageal reflux disease Qualifiers: Esophagitis presence: esophagitis presence not specified Qualified Code(s): K21.9 - Gastro-esophageal reflux disease without esophagitis (9) Nausea & vomiting Qualifiers: Vomiting type: unspecified Vomiting Intractability: non-intractable Qualified Code(s): R11.2 - Nausea with vomiting, unspecified
[2019-05-23] MEDS ORDERED: Lidocaine -MPF 2% 2 ML VIAL ONE (13:10)
[2019-05-23] MEDS ORDERED: *HR* Propofol 200 MG/20 ML VIAL IVP ONE (13:10)
--- NOTE | 2019-05-23 13:27 | Anesthesia Evaluation PreOp ---
Date of Encounter: 05/23/19 Time of Encounter: 13:50 - Past History Planned Operation: EGD Cardiac History: [place], HTN, Hyperlipidemia, Cardiac Stent Pulmonary History: Asthma [employer] History: Denies Any Significant HX Other Medical History: Renal (renal insufficiency secondary to acute dehydration), GERD (hiatal hernia, has required repeated dilations for esophageal stricture), Other (Admitted to hospital for abdominal pain and nausea/vomiting. Preliminary diagnosis possible gastritis, pancreatitis or cholelithiasis.) Anesthesia History: No Prior Anesthetic Complications, Past Anesthesia Alcohol Use: none Drug use: none Medications and Allergies Aspirin 81 mg PO DAILY 03/28/16 [History] Atorvastatin [Lipitor] 80 mg PO HS 03/28/16 [History] Budesonide/Formoterol 80/4.5 [Symbicort 80/4.5] 2 puff IH BID 03/28/16 [History] Carvedilol [Coreg] 6.25 mg PO BIDWM 03/28/16 [History] Cholecalciferol (Vitamin D3) [Vitamin D3] 3,000 unit PO DAILY 03/28/16 [History] Clopidogrel [Plavix] 75 mg PO DAILY 03/28/16 [History] Lisinopril 10 mg PO DAILY 03/28/16 [History] Nitroglycerin [Nitrostat] 0.4 mg SL Q5M PRN 03/28/16 [History] [place]-3/Dha/Epa/Fish Oil [Fish Oil 1,000 mg Softgel] 1,200 mg PO DAILY #0 03/28/16 [History] Ranolazine [Ranexa] 1,000 mg PO BID 03/28/16 [History] metFORMIN [Glucophage] 500 mg PO DAILY 11/27/16 [History] hydroCHLOROthiazide [Hydrochlorothiazide] 50 mg PO DAILY 03/14/19 [History] Montelukast [Singulair] 10 mg PO DAILY PRN 05/20/19 [History] Albuterol Sulfate [Proair Hfa] 2 puff IH Q4H PRN 05/21/19 [History] Isosorbide DInitrate [Isosorbide Dinitrate] 10 mg PO TID 05/21/19 [History] Pantoprazole Sodium [Protonix] 40 mg PO DAILY 05/21/19 [History] Ranitidine HCl [Acid [facility]] 150 mg PO DAILY 05/21/19 [History] Sucralfate [Carafate] 1 gm PO BID 05/21/19 [History] Allergy/AdvReac Type Severity Reaction Status Date / Time Sulfa (Sulfonamide Allergy Rash Verified 05/21/19 12:37 Antibiotics) isosorbide [From Imdur] AdvReac Cramping Verified 05/21/19 12:37 of the Muscles - Meds/Allergy Pre-op Review Medications Reviewed: Yes Allergies Reviewed: Yes Beta Blockers on Current Med List: Yes (0900) Anesthesia Results - Labs 05/22/19 03:36 05/23/19 06:12 - Imaging EKG: report reviewed (sinus rhythm) Anesthesia Exam Selected Entries 05/23/19 11:39 Temperature 97.9 F Pulse Rate 63 Respiratory Rate 16 Blood Pressure 124/76 O2 Sat by Pulse Oximetry 99 Weight: 107 kg. BMI 34 NPO (# of Hours): ovr 8 hours - HEENT Pupil (Motor): Pupils equal Mallampati: II Teeth: Normal Oral Opening: Greater than 3 - Cardiac Rhythm: Regular Murmur: None - Pulmonary Breath Sounds: bilateral Clear Respiratory Effort: Symmetrical Anesthesia Assess/Plan ASA Score: 3 Level of consciousness: Cooperative Anesthetic Plan: MAC Monitoring Plan: Standard Monitors Recovery Plan: Other (Discussed MAC anesthesia, agreed to proceed.)
--- NOTE | 2019-05-23 14:19 | Anesthesia Evaluation Post Op ---
Date of Encounter: 05/23/19 Time of Encounter: 14:18 - Vital Signs Vital Signs: 127/81, HR 65, SpO2 94%, RR 16 - Lungs Lungs: Clear Ascult./Percussion - Airway Airway: Non-obstructed - Cardiovascular Regular Rate - Mental Status Mental Status: Alert & Oriented, Answers Appropriately - Pain Pain Scale: 0 Pain Scale used: Numeric (1 - 10) - Nausea Vomiting Nausea Vomiting: Not Present - Hydration Hydration: NPO, Has not voided - Discharge PostOp Status: Transfer Patient to floor
[2019-05-23] MEDS: cefTRIAXone 2,000 MG in Water for inj. (sterile) 20 ML IVP SCH (15:29)
--- NOTE | 2019-05-23 16:00 | Gastroenterology Consult Note ---
Date of Encounter: 05/23/19 Time of Encounter: 11:55 - Assessment and plan (1) Gastroesophageal reflux disease Current Visit: No Status: Chronic Assessment and plan: Continue PPI and Carafate. Plan for EGD today to r/o esophagitis, gastritis, duodenitis, PUD, MW tear, or AVM. Keep patient NPO for EGD. Patient educated regarding lifestyle modifications including: (1) avoidance of foods that may precipitate reflux (eg, coffee, alcohol, chocolate, fatty foods). (2) avoidance of acidic foods that may precipitate heartburn (eg, citrus, carbonated drinks, spicy foods). (3) adoption of behaviors that may reduce esophageal acid exposure (see weight loss, smoking cessation, raising the head of the bed, and avoiding recumbency for 2-3 hours after meals). There is a potential drug interaction between PPIs and Plavix as both are metabolized by cytochrome 450 enzymes and especially Plavix require these enzymes to become active. In the presence of PPI, there is a potential for reduced effectiveness of Plavix. Recommend spacing out the PPI and the Plavix (PPI in the morning, and Plavix at night or vice versa). Avoid using PPI if not needed and use other meds such as Zantac. If PPI is needed then avoid omeprazole (Prilosec) and esmoprazole (Nexium) and use other PPIs. Qualifiers: Esophagitis presence: esophagitis presence not specified Qualified Code(s): K21.9 - Gastro-esophageal reflux disease without esophagitis (2) Nausea & vomiting Current Visit: Yes Status: Acute Assessment and plan: Likely secondary to GERD. Qualifiers: Vomiting type: unspecified Vomiting Intractability: non-intractable Qualified Code(s): R11.2 - Nausea with vomiting, unspecified (3) Kovacs's esophagus Current Visit: Yes Status: Acute Assessment and plan: Last EGD 02/14/2019 positive for Kovacs's esophagus with no dysplasia. Continue daily PPI. Qualifiers: Kovacs's esophagus type: without dysplasia Qualified Code(s): K22.70 - Kovacs's esophagus without dysplasia - Time Spent With Patient Total time spent is greater than 50% in coordination of care (as documented) at patient's floor/unit and/or counseling patient: GI History of Present Illness - Data of Consult Patient: known to practice within the last 3 years Consult date: 05/23/19 Requesting Physician: Pearl Raphael - Consult Narrative Reason for consult: Vomiting History of present illness: Mr. Hicks is a 63 year old male with PMHx of CAD, GERD, HLD, HTN, PR, skin cancer, Kovacs's esophagus who presented with abdominal pain and vomiting for the past 3 weeks. He states he was vomiting daily starting in March, and over the past "couple of weeks" has been vomiting 2-3 times daily. He states his PCP changed him from omeprazole to Protonix and started Carafate. He denies any coffee-ground emesis or hematemesis. No melena or hematochezia. Procedures: EGD 02/14/2019 Dr. Andujar: Positive Kovacs's esophagus with no dysplasia, small hiatal hernia, esophageal stenosis which was dilated. EGD 10/11/2018 Dr. Montilla: Positive for Kovacs's esophagus with no dysplasia, 5 mm fundic gland polyp. Colonoscopy 11/27/2016 Dr. Montilla: Four tubular adenoma ranging from 3-10 mm in size, internal hemorrhoids. NSAIDs: ASA Anticoagulation: Plavix Past Med Surg Social Fam HX - Past Medical History Medical history: asthma, cancer, coronary artery disease, GERD, hyperlipidemia, hypertension, kidney stones, myocardial infarction Additional medical history: skin cancer, hiatal hernia, Kovacs's esophagus Psychiatric history: no psych history - Past Surgical History Surgical History: angioplasty/stent, cholecystectomy Additional surgical history: egd, esophagus stretched - Social History Smoking Status: Never smoker Smokeless Tobacco Status: No Alcohol use: none Drug use: none - Family History Mother Hx Family Cardiac Disorders: Yes Father Hx Family Cardiac Disorders: Yes Hx Family Cancer: Yes (bladder) - Gastrointestinal Gastrointestinal: Present: as per HPI - Constitutional Constitutional: as per HPI - EENT Eyes: as per HPI Ears: Present: as per HPI Nose, mouth and throat: Present: as per HPI - Cardiovascular Cardiovascular ROS: Present: as per HPI - Respiratory Respiratory IM: Present: as per HPI - Genitourinary Genitourinary: Absent: change in color, Urinary frequency - Neurological ROS Neurological GI: Present: as per HPI - Hematologic/Lymphatic Hematologic/Lymphatic pediatric: Present: as per HPI - Musculoskeletal Musculoskeletal ROS GI: Present: as per HPI - Integumentary Integumentary GI: Present: as per HPI - Psychiatric ROS Psychiatric GI: Present: as per HPI - Endocrine Endocrine IM: Present: as per HPI - Constitutional Vitals: Temp Pulse Resp BP Pulse Ox 97.8 F 60 16 153/78 97 05/23/19 13:46 05/23/19 13:46 05/23/19 13:46 05/23/19 13:46 05/23/19 13:46 General appearance: Present: cooperative, A&O X 3, no acute distress, answers q uestions appropriately - Head Head exam: Present: atraumatic, normocephalic - Eye Eye exam: Present: normal appearance, sclera anicteric - ENT ENT exam: Present: mucous membranes moist - Neck Neck exam general surgery: Present: normal inspection, trachea midline - Respiratory Respiratory exam: Present: CTAB. Absent: rales, rhonchi - Cardiovascular Cardiovascular exam: Present: RRR, +S1, +S2 - GI/Abdominal GI/Abdominal exam: Present: soft, tenderness (epigastric), no peritoneal signs. Absent: distended, firm, guarding - Rectal Rectal exam: Present: deferred - Extremities Exam Extremities exam: Present: warm - Neurological Exam Neurological exam: Present: no focal deficits - Psychiatric Psychiatric exam: Present: normal affect, normal mood - Skin Skin exam: Present: dry, intact, normal color, warm Results - Labs CBC & Chem 7: 05/22/19 03:36 05/23/19 06:12 Labs: Last Result 05/23/19 06:12 Calcium 9.0 - ABG ABG results: PT/INR, D-dimer PT 12.0 Seconds (9.4-12.1) 05/21/19 01:48 Consult Discharge Plan - Plan Referrals: Yasmany Robb DO [Primary Care Provider] - (Appt has been requested )
[2019-05-23] MEDS: D5% in 0.45% NACL w KCl 10 MEQ/1,000 ML MLS IVC SCH (18:15)
[2019-05-23] MEDS: Sucralfate 1 GM TABLET PO SCH ×2 (18:15→22:01)
[2019-05-24] MEDS: D5% in 0.45% NACL w KCl 10 MEQ/1,000 ML MLS IVC SCH (04:24)
[2019-05-24] MEDS: Sucralfate 1 GM TABLET PO SCH ×2 (06:01→10:21)
[2019-05-24] MEDS: *HR* Heparin 5,000 UNIT/ML VIAL SQ SCH (06:01)
[2019-05-24 07:31] LABS: BUN/Creatinine Ratio 12 (6-26); Blood Urea Nitrogen 15 mg/dL (8-23); Calcium 8.9 mg/dL (8.6-10.3); Carbon Dioxide 26 mEq/L (23-29); Chloride 105 mEq/L (98-107); Glucose 114 mg/dL (70-105); Osmolality,Calculated 290 (280-300); Potassium 4.1 mEq/L (3.5-5.1); Sodium 139 mEq/L (136-145); eGFR For African Americans > 60 (> 60); eGFR For Non-African Americans > 60 (> 60)
[2019-05-24] MEDS: Budesonide/Formoterol 80/4.5 MDI IH SCH (07:40)
--- NOTE | 2019-05-24 10:08 | Discharge Summary ---
- NOTES TO OUTPATIENT PROVIDER Notes to Outpatient Provider: f/u with PCP within a week. f/u with GI within 2 weeks. Date of Encounter: 05/24/19 Time of Encounter: 10:06 - Discharge Diagnosis (1) Hypertension Priority: Secondary Status: Chronic Qualifiers: Hypertension type: essential hypertension Qualified Code(s): I10 - Essential (primary) hypertension (2) Asthma Priority: Secondary Status: Chronic Qualifiers: Asthma severity: unspecified severity Asthma complication type: uncomplicated Qualified Code(s): J45.909 - Unspecified asthma, uncomplicated (3) Hyperlipidemia Priority: Secondary Status: Chronic Qualifiers: Hyperlipidemia type: unspecified Qualified Code(s): E78.5 - Hyperlipidemia, unspecified (4) Coronary artery disease Priority: Secondary Status: Chronic Qualifiers: Coronary Disease-Associated Artery/Lesion type: [place] artery [place] vs. transplanted heart: [place] heart Associated angina: with unstable angina Qualified Code(s): I25.110 - Atherosclerotic heart disease of [place] coronary artery with unstable angina pectoris (5) Gastroesophageal reflux disease Priority: Secondary Status: Chronic Qualifiers: Esophagitis presence: esophagitis presence not specified Qualified Code(s): K21.9 - Gastro-esophageal reflux disease without esophagitis (6) DVT prophylaxis Priority: Secondary Status: Acute (7) DARREL (acute kidney injury) Priority: Primary Status: Acute (8) Nausea & vomiting Priority: Primary Status: Acute Qualifiers: Vomiting type: unspecified Vomiting Intractability: non-intractable Qualified Code(s): R11.2 - Nausea with vomiting, unspecified (9) Gastric ulcer Priority: Primary Status: Acute Qualifiers: Gastric ulcer chronicity: chronic Gastric ulcer complication status: unspecified whether hemorrhage or perforation present Qualified Code(s): K25.7 - Chronic gastric ulcer without hemorrhage or perforation (10) Acute esophagitis Priority: Primary Status: Acute (11) Acute gastritis Priority: Primary Status: Acute Qualifiers: Gastritis bleeding: presence of bleeding unspecified Qualified Code(s): K29.00 - Acute gastritis without bleeding (12) Erosive gastritis Priority: Primary Status: Acute Hospital course: Mr. Hicks is a 63 year old male with PMH of patient who presented with abdominal pain and vomiting that lasted for the last 3 weeks. The patient stated that he was evaluated by the primary care provider who treated him with omeprazole and carafate was temporary relief. The patient stated that for the last several days he started experiencing progressive worsening of nausea associated with non-bilious non-bloody vomiting as well as left upper quadrant pain. The patient was evaluated by the ER staff and labs suggestive of acute kidney injury. The patient denies diarrhea, hematochezia, melena and change of urinary habits. He was treated with IV fluid and PPI. Acute renal failure has improved. He underwent an EGD study which revealed acute esophagitis, nonbleeding gastric ulcer, and erosive gastritis. Carafate and PPI were recom mended by GI. On the discharge day, his renal function has returned to baseline, he has been tolerated diet, his abdominal pain has improved although he reported occasional mild nausea. Patient is discharged home today, was instructed to continue to take PPI and Carafate as ordered, follow-up with PCP and GI as scheduled. Discharge discussed with: patient Time spent discussing smoking cessation with patient: more than 10 minutes - Time Spent with Patient Total time spent providing and/or coordinating discharge services: Time spent: Greater than 30 minutes - Discharge Medications Prescriptions: New Sucralfate [Carafate] 1 gm PO QIDAC #120 tablet Omeprazole [PriLOSEC] 40 mg PO BID #60 cap Ondansetron HCl [Zofran] 4 mg PO Q8HR PRN #20 tab PRN Reason: Nausea Continued Clopidogrel [Plavix] 75 mg PO DAILY Carvedilol [Coreg] 6.25 mg PO BIDWM Atorvastatin [Lipitor] 80 mg PO HS Aspirin 81 mg PO DAILY Ranolazine [Ranexa] 1,000 mg PO BID Nitroglycerin [Nitrostat] 0.4 mg SL Q5M PRN PRN Reason: Angina Lisinopril 10 mg PO DAILY [place]-3/Dha/Epa/Fish Oil [Fish Oil 1,000 mg Softgel] 1,200 mg PO DAILY #0 Cholecalciferol (Vitamin D3) [Vitamin D3] 3,000 unit PO DAILY Budesonide/Formoterol 80/4.5 [Symbicort 80/4.5] 2 puff IH BID metFORMIN [Glucophage] 500 mg PO DAILY Montelukast [Singulair] 10 mg PO DAILY PRN PRN Reason: Allergy Symptoms Albuterol Sulfate [Proair Hfa] 2 puff IH Q4H PRN PRN Reason: Shortness Of Breath Isosorbide DInitrate [Isosorbide Dinitrate] 10 mg PO TID Ranitidine HCl [Acid [employer]] 150 mg PO DAILY Discontinued Pantoprazole Sodium [Protonix] 40 mg PO DAILY Sucralfate [Carafate] 1 gm PO BID hydroCHLOROthiazide [Hydrochlorothiazide] 50 mg PO DAILY Home Medications: Aspirin 81 mg PO DAILY 03/28/16 [History] Atorvastatin [Lipitor] 80 mg PO HS 03/28/16 [History] Budesonide/Formoterol 80/4.5 [Symbicort 80/4.5] 2 puff IH BID 03/28/16 [History] Carvedilol [Coreg] 6.25 mg PO BIDWM 03/28/16 [History] Cholecalciferol (Vitamin D3) [Vitamin D3] 3,000 unit PO DAILY 03/28/16 [History] Clopidogrel [Plavix] 75 mg PO DAILY 03/28/16 [History] Lisinopril 10 mg PO DAILY 03/28/16 [History] Nitroglycerin [Nitrostat] 0.4 mg SL Q5M PRN 03/28/16 [History] [place]-3/Dha/Epa/Fish Oil [Fish Oil 1,000 mg Softgel] 1,200 mg PO DAILY #0 03/28/16 [History] Ranolazine [Ranexa] 1,000 mg PO BID 03/28/16 [History] metFORMIN [Glucophage] 500 mg PO DAILY 11/27/16 [History] Montelukast [Singulair] 10 mg PO DAILY PRN 05/20/19 [History] Albuterol Sulfate [Proair Hfa] 2 puff IH Q4H PRN 05/21/19 [History] Isosorbide DInitrate [Isosorbide Dinitrate] 10 mg PO TID 05/21/19 [History] Ranitidine HCl [Acid [employer]] 150 mg PO DAILY 05/21/19 [History] Omeprazole [PriLOSEC] 40 mg PO BID #60 cap 05/24/19 [Rx] Ondansetron HCl [Zofran] 4 mg PO Q8HR PRN #20 tab 05/24/19 [Rx] Sucralfate [Carafate] 1 gm PO QIDAC #120 tablet 05/24/19 [Rx] Allergies/Adverse Reactions: Allergy/AdvReac Type Severity Reaction Status Date / Time Sulfa (Sulfonamide Allergy Rash Verified 05/21/19 12:37 Antibiotics) isosorbide [From Imdur] AdvReac Cramping Verified 05/21/19 12:37 of the Muscles Date of admission: 05/20/19 11:07 Primary care physician: Yasmany Robb DO Consults: 05/20/19 16:23 Consult to Gastroenterology [CONS] Routine Consulting Provider: Gastroenterology [facility] Reason for Consult: Vomiting Call Completed: Yes Anticipated date of discharge: 05/24/19 - Constitutional Vitals: Temp Pulse Resp BP Pulse Ox 97.8 F 62 16 125/80 97 05/24/19 07:15 05/24/19 07:15 05/24/19 07:41 05/24/19 07:15 05/24/19 07:41 General appearance: Present: A&O X 3 Exam: PHYSICAL EXAMINATION: GENERAL APPEARANCE: The patient is alert, oriented and in no acute distress. HEENT: Head is normocephalic. The sinuses are nontender. Pupils are equal and reactive. The nares are patent. Oropharynx clear without lesions. NECK: Supple without lymphadenopathy. HEART: Regular rate and rhythm. LUNGS: No crackles or wheezes are heard. ABDOMEN: Soft, nontender, nondistended with good bowel sounds heard. Inguinal area is normal. EXTREMITIES: Without cyanosis, clubbing or edema. NEUROLOGICAL: Gross nonfocal. SKIN: Warm and dry without any rash. - Patient Status Disposition: Home, Self-Care Condition: Good Functional capacity at discharge: independent ambulation Overall status at discharge: patient is progressing back to baseline - Discharge Instructions Follow Up With: Yasmany Robb DO [Primary Care Provider] - (Appt has been requested ) - Diet and Activity Activity: increase activity as tolerated Diet: diabetic diet
[2019-05-24] MEDS: Ranolazine 500 MG TAB.ER.12H PO SCH (10:20)
[2019-05-24] MEDS: (Fish Oil 1,000 Mg Softgel) PO SCH (10:21)
[2019-05-24] MEDS: Cholecalciferol (D-3) 1,000 UNIT (25MCG) TABLET PO SCH (10:21)
[2019-05-24] MEDS: Aspirin 81 MG TAB.CHEW PO SCH (10:21)
[2019-05-24 11:20] VITALS: BP 103/70
== END 2019-05-24 14:03 | disposition home or self-care (01) ==
LOC: EMEROOARM 08:47 → 3BNU 08:47
PROVIDERS: ADMIT Internal Medicine Nephrology; ATTEND Internal Medicine Nephrology

== ENCOUNTER 2019-07-29 13:38 | Observation (INO) ==
[2019-07-29 14:50] LABS: Basophils % 0.2 %; Eosinophils # 0.1 K/mcL (0.0-0.6); Eosinophils % 1.9 %; Hematocrit 37.2 % (37.5-50.1); Immature Granulocytes % 0.6 % (0-4); Lymphocytes # 1.1 K/mcL (0.6-4.6); Lymphocytes % 20.9 %; Mean Corpuscular HGB Conc 32.3 g/dL (31.6-35.5); Mean Corpuscular Hemoglobin 29.3 pg (28.0-33.3); Mean Platelet Volume 9.5 fL (9.4-12.4); Monocytes # 0.4 K/mcL (0.0-1.3); Monocytes % 6.5 %; Neutrophils # 3.8 K/mcL (1.6-8.9); Platelet Count 209 K/mcL (140-400); Red Blood Count 4.09 M/mcL (4.19-5.50); Red Cell Distribution Width 13.8 % (11.5-14.5); Segmented Neutrophils % 69.9 %; White Blood Count 5.4 K/mcL (4.3-11.1)
[2019-07-29 14:59] LABS: INR 1.1; Prothrombin Time 12.1 Seconds (9.4-12.1)
[2019-07-29 15:02] LABS: Activated Partial Thrombo Time 35.3 Seconds (26.0-36.0)
[2019-07-29 15:11] LABS: BUN/Creatinine Ratio 15 (6-26); Blood Urea Nitrogen 17 mg/dL (8-23); Calcium 9.2 mg/dL (8.6-10.3); Carbon Dioxide 28 mEq/L (23-29); Chloride 106 mEq/L (98-107); Glucose 95 mg/dL (70-105); Osmolality,Calculated 287 (280-300); Potassium 4.3 mEq/L (3.5-5.1); Sodium 138 mEq/L (136-145); eGFR For African Americans > 60 (> 60); eGFR For Non-African Americans > 60 (> 60)
[2019-07-29 15:12] LABS: Troponin I < 0.03 ng/mL (< 0.04)
[2019-07-29] MEDS ORDERED: Nitroglycerin 0.4 MG TAB.SUBL SL ONE (15:46)
[2019-07-29] MEDS: Nitroglycerin 0.4 MG TAB.SUBL SL SCH ×2 (15:48→18:20)
[2019-07-29] MEDS ORDERED: Aspirin 81 MG TAB.CHEW PO ONE (16:15)
[2019-07-29] MEDS ORDERED: Ondansetron 4 MG/2 ML VIAL IVP PRN (17:39)
[2019-07-29] MEDS ORDERED: Naloxone 0.4 MG/ML INJ IVP PRN (17:39)
[2019-07-29] MEDS: Budesonide/Formoterol 80/4.5 1 PUFF INH IH SCH (21:57)
[2019-07-30 03:04] LABS: Basophils % 0.4 %; Eosinophils # 0.1 K/mcL (0.0-0.6); Eosinophils % 2.1 %; Hematocrit 34.8 % (37.5-50.1); Hemoglobin 11.2 g/dL (12.9-16.9); Immature Granulocytes % 0.6 % (0-4); Lymphocytes # 1.1 K/mcL (0.6-4.6); Lymphocytes % 22.1 %; Mean Corpuscular HGB Conc 32.2 g/dL (31.6-35.5); Mean Corpuscular Hemoglobin 29.2 pg (28.0-33.3); Mean Corpuscular Volume 90.9 fL (83.0-100.0); Mean Platelet Volume 9.5 fL (9.4-12.4); Monocytes # 0.3 K/mcL (0.0-1.3); Neutrophils # 3.3 K/mcL (1.6-8.9); Platelet Count 203 K/mcL (140-400); Red Blood Count 3.83 M/mcL (4.19-5.50); Red Cell Distribution Width 13.8 % (11.5-14.5); Segmented Neutrophils % 68.8 %; White Blood Count 4.8 K/mcL (4.3-11.1)
[2019-07-30 03:13] LABS: INR 1.1; Prothrombin Time 12.6 Seconds (9.4-12.1)
[2019-07-30 03:22] LABS: BUN/Creatinine Ratio 16 (6-26); Blood Urea Nitrogen 18 mg/dL (8-23); Calcium 8.9 mg/dL (8.6-10.3); Carbon Dioxide 24 mEq/L (23-29); Chloride 107 mEq/L (98-107); Glucose 92 mg/dL (70-105); Magnesium 1.9 mg/dL (1.6-2.6); Osmolality,Calculated 286 (280-300); Potassium 3.5 mEq/L (3.5-5.1); Sodium 137 mEq/L (136-145); eGFR For African Americans > 60 (> 60); eGFR For Non-African Americans > 60 (> 60)
[2019-07-30 03:23] LABS: Chol/HDL Ratio 3.8 (0-4.9)
[2019-07-30] MEDS: Budesonide/Formoterol 80/4.5 1 PUFF INH IH SCH ×2 (07:55→20:18)
[2019-07-30 08:05] LABS: Estimated Average Glucose 117 mg/dl
[2019-07-30] MEDS: Aspirin 81 MG TAB.CHEW PO SCH (11:06)
[2019-07-30] MEDS: Acetaminophen 325 MG TABLET PO PRN (20:47)
[2019-07-30] MEDS ORDERED: traMADol 50 MG TABLET PO ONE (23:35)
[2019-07-31 05:50] LABS: Basophils % 0.4 %; Eosinophils # 0.1 K/mcL (0.0-0.6); Eosinophils % 2.2 %; Hematocrit 35.1 % (37.5-50.1); Hemoglobin 11.4 g/dL (12.9-16.9); Immature Granulocytes % 0.6 % (0-4); Lymphocytes # 1.1 K/mcL (0.6-4.6); Lymphocytes % 21.2 %; Mean Corpuscular HGB Conc 32.5 g/dL (31.6-35.5); Mean Corpuscular Hemoglobin 29.3 pg (28.0-33.3); Mean Corpuscular Volume 90.2 fL (83.0-100.0); Mean Platelet Volume 9.9 fL (9.4-12.4); Monocytes # 0.3 K/mcL (0.0-1.3); Monocytes % 5.1 %; Neutrophils # 3.6 K/mcL (1.6-8.9); Platelet Count 209 K/mcL (140-400); Red Blood Count 3.89 M/mcL (4.19-5.50); Red Cell Distribution Width 13.7 % (11.5-14.5); Segmented Neutrophils % 70.5 %; White Blood Count 5.1 K/mcL (4.3-11.1)
[2019-07-31 06:14] LABS: BUN/Creatinine Ratio 17 (6-26); Blood Urea Nitrogen 23 mg/dL (8-23); Carbon Dioxide 25 mEq/L (23-29); Chloride 105 mEq/L (98-107); Glucose 98 mg/dL (70-105); Osmolality,Calculated 290 (280-300); Potassium 3.6 mEq/L (3.5-5.1); Sodium 138 mEq/L (136-145); eGFR For African Americans > 60 (> 60); eGFR For Non-African Americans 54 (> 60)
[2019-07-31] MEDS: Budesonide/Formoterol 80/4.5 1 PUFF INH IH SCH (07:21)
[2019-07-31] MEDS: Aspirin 81 MG TAB.CHEW PO SCH (08:31)
[2019-07-31] MEDS: Acetaminophen 325 MG TABLET PO PRN (08:34)
[2019-07-31] MEDS ORDERED: hydroCHLOROthiazide 25 MG TABLET PO SCH (09:00)
[2019-07-31] MEDS ORDERED: Ranolazine 500 MG TAB.ER.12H PO SCH (09:00)
[2019-07-31] MEDS ORDERED: Sucralfate 1 GM TABLET PO SCH (11:30)
[2019-07-31 11:38] VITALS: BP 148/70
== END 2019-07-31 15:11 | disposition home or self-care (01) ==
LOC: 3BNU 13:38 → EMEROOARM 13:38 → SUATTDRO 16:48 → 3BNU 17:37
PROVIDERS: ADMIT Internal Medicine; ATTEND Internal Medicine

== ENCOUNTER 2019-08-02 10:42 | Observation (INO) ==
[2019-08-02] MEDS ORDERED: Naloxone 0.4 MG/ML INJ IVP PRN (13:02)
[2019-08-02 13:47] LABS: Basophils % 0.3 %; Eosinophils % 0.5 %; Hemoglobin 12.2 g/dL (12.9-16.9); Immature Granulocytes % 0.4 % (0-4); Lymphocytes # 0.8 K/mcL (0.6-4.6); Lymphocytes % 11.2 %; Mean Corpuscular HGB Conc 32.1 g/dL (31.6-35.5); Mean Corpuscular Hemoglobin 28.9 pg (28.0-33.3); Mean Platelet Volume 9.5 fL (9.4-12.4); Monocytes # 0.3 K/mcL (0.0-1.3); Monocytes % 3.9 %; Neutrophils # 6.2 K/mcL (1.6-8.9); Platelet Count 219 K/mcL (140-400); Red Blood Count 4.22 M/mcL (4.19-5.50); Red Cell Distribution Width 13.8 % (11.5-14.5); Segmented Neutrophils % 83.7 %; White Blood Count 7.4 K/mcL (4.3-11.1)
[2019-08-02 14:00] LABS: Magnesium 1.9 mg/dL (1.6-2.6)
[2019-08-02 14:01] LABS: Troponin I < 0.03 ng/mL (< 0.04)
[2019-08-02] MEDS ORDERED: 0.9 % Sodium Chloride 1,000 ML IVC SCH (15:00)
[2019-08-02] MEDS ORDERED: *HR* Dextrose 50 % in Water (Syg) 50 ML SYRINGE IVP PRN (16:03)
[2019-08-02] MEDS ORDERED: Dextrose Gel 15 GM/37.5 ML TUBE PO PRN ×2 (16:03)
[2019-08-02] MEDS ORDERED: D5% in Water 1,000 ML IVC PRN (16:03)
[2019-08-02 16:32] LABS: Bilirubin,Urine Negative (Negative); Blood,Urine Negative (Negative); Clarity,Urine Clear (Clear); Color,Urine Yellow (Yellow); Glucose,Urine (UA) Normal (Normal); Ketones,Urine Negative (Negative); Leukocyte Esterase,Urine Negative (Negative); Nitrite,Urine Negative (Negative); PH,Urine 5.5 pH Units (5.0-8.0); Protein,Urine Negative (Neg-Trace); Specific Gravity,Urine 1.017 (1.010-1.025); Urobilinogen,Urine Normal (Normal)
[2019-08-02 16:57] LABS: Amphetamine Screen,Urine Negative ng/mL (Cutoff=1000); Barbiturate Screen,Urine Negative ng/mL (Cutoff=200); Benzodiazepines Screen,Urine Negative ng/mL (Cutoff=200); Cannabinoid Screen,Urine Negative ng/mL (Cutoff = 50); Cocaine Screen,Urine Negative ng/mL (Cutoff= 300); Opiate Screen,Urine Negative ng/mL (Cutoff=300); Phencyclidine Screen,Urine Negative ng/mL (Cutoff=25)
[2019-08-02] MEDS: Sucralfate 1 GM TABLET PO SCH ×2 (17:16→22:44)
[2019-08-02] MEDS: 0.9 % Sodium Chloride 1,000 ML IVC SCH (17:16)
[2019-08-02] MEDS: Insulin LISPRO 300 UNITS/3 ML VIAL SQ SCH ×2 (17:27→22:44)
[2019-08-02] MEDS: Budesonide/Formoterol 80/4.5 1 PUFF INH IH SCH (19:26)
[2019-08-02] MEDS: Ranolazine 500 MG TAB.ER.12H PO SCH (20:17)
[2019-08-03 02:29] LABS: Basophils % 0.3 %; Eosinophils # 0.1 K/mcL (0.0-0.6); Eosinophils % 1.4 %; Hematocrit 35.4 % (37.5-50.1); Hemoglobin 11.5 g/dL (12.9-16.9); Immature Granulocytes % 0.5 % (0-4); Lymphocytes # 1.2 K/mcL (0.6-4.6); Lymphocytes % 18.4 %; Mean Corpuscular HGB Conc 32.5 g/dL (31.6-35.5); Mean Corpuscular Hemoglobin 29.5 pg (28.0-33.3); Mean Corpuscular Volume 90.8 fL (83.0-100.0); Mean Platelet Volume 9.6 fL (9.4-12.4); Monocytes # 0.4 K/mcL (0.0-1.3); Monocytes % 5.6 %; Neutrophils # 4.8 K/mcL (1.6-8.9); Platelet Count 203 K/mcL (140-400); Red Cell Distribution Width 13.8 % (11.5-14.5); Segmented Neutrophils % 73.8 %; White Blood Count 6.4 K/mcL (4.3-11.1)
[2019-08-03 02:41] LABS: BUN/Creatinine Ratio 17 (6-26); Blood Urea Nitrogen 24 mg/dL (8-23); Calcium 8.8 mg/dL (8.6-10.3); Carbon Dioxide 22 mEq/L (23-29); Chloride 107 mEq/L (98-107); Glucose 129 mg/dL (70-105); Osmolality,Calculated 288 (280-300); Potassium 3.7 mEq/L (3.5-5.1); Sodium 136 mEq/L (136-145); eGFR For African Americans > 60 (> 60); eGFR For Non-African Americans 50 (> 60)
[2019-08-03] MEDS: 0.9 % Sodium Chloride 1,000 ML IVC SCH ×2 (05:02→20:15)
[2019-08-03] MEDS: Insulin LISPRO 300 UNITS/3 ML VIAL SQ SCH ×4 (07:48→20:26)
[2019-08-03] MEDS: Budesonide/Formoterol 80/4.5 1 PUFF INH IH SCH ×2 (08:03→22:23)
[2019-08-03] MEDS: Ranolazine 500 MG TAB.ER.12H PO SCH ×2 (08:48→20:14)
[2019-08-03] MEDS: Cholecalciferol (D-3) 1,000 UNIT (25MCG) TABLET PO SCH (08:49)
[2019-08-03] MEDS: Aspirin 81 MG TAB.CHEW PO SCH (08:49)
[2019-08-03] MEDS: Sucralfate 1 GM TABLET PO SCH ×4 (08:49→20:14)
[2019-08-03] MEDS ORDERED: hydrALAZINE 10 MG TABLET PO PRN (13:38)
[2019-08-04 04:39] LABS: Basophils % 0.3 %; Eosinophils # 0.1 K/mcL (0.0-0.6); Eosinophils % 1.8 %; Hematocrit 35.4 % (37.5-50.1); Hemoglobin 11.4 g/dL (12.9-16.9); Immature Granulocytes % 0.3 % (0-4); Lymphocytes # 1.1 K/mcL (0.6-4.6); Lymphocytes % 17.6 %; Mean Corpuscular HGB Conc 32.2 g/dL (31.6-35.5); Mean Corpuscular Hemoglobin 29.4 pg (28.0-33.3); Mean Corpuscular Volume 91.2 fL (83.0-100.0); Mean Platelet Volume 10.2 fL (9.4-12.4); Monocytes # 0.3 K/mcL (0.0-1.3); Monocytes % 5.5 %; Neutrophils # 4.5 K/mcL (1.6-8.9); Platelet Count 197 K/mcL (140-400); Red Blood Count 3.88 M/mcL (4.19-5.50); Red Cell Distribution Width 13.6 % (11.5-14.5); Segmented Neutrophils % 74.5 %
[2019-08-04 04:55] LABS: BUN/Creatinine Ratio 20 (6-26); Blood Urea Nitrogen 23 mg/dL (8-23); Calcium 8.8 mg/dL (8.6-10.3); Carbon Dioxide 22 mEq/L (23-29); Chloride 109 mEq/L (98-107); Glucose 100 mg/dL (70-105); Osmolality,Calculated 288 (280-300); Potassium 3.6 mEq/L (3.5-5.1); Sodium 137 mEq/L (136-145); eGFR For African Americans > 60 (> 60); eGFR For Non-African Americans > 60 (> 60)
[2019-08-04] MEDS: Insulin LISPRO 300 UNITS/3 ML VIAL SQ SCH (07:46)
[2019-08-04] MEDS: Budesonide/Formoterol 80/4.5 1 PUFF INH IH SCH (07:47)
[2019-08-04] MEDS: Sucralfate 1 GM TABLET PO SCH (08:49)
[2019-08-04] MEDS: Ranolazine 500 MG TAB.ER.12H PO SCH (08:49)
[2019-08-04] MEDS: Aspirin 81 MG TAB.CHEW PO SCH (08:49)
[2019-08-04] MEDS: Cholecalciferol (D-3) 1,000 UNIT (25MCG) TABLET PO SCH (08:49)
[2019-08-04 10:47] VITALS: BP 134/82
== END 2019-08-04 13:43 | disposition home or self-care (01) ==
LOC: 3BNU → SUATTDRO 12:03
PROVIDERS: ADMIT Internal Medicine; ATTEND Student in an Organized Health Care Education/Training Program

== ENCOUNTER 2019-09-08 12:16 | Observation (INO) ==
[2019-09-08] MEDS ORDERED: Mag Hydrox/Al Hydrox/Simeth 30 ML UDC PO PRN (14:46)
[2019-09-08] MEDS ORDERED: MOM Conc 10 ML UD.LIQ PO PRN (14:46)
[2019-09-08] MEDS ORDERED: Ondansetron 4 MG/2 ML VIAL IVP PRN (14:46)
[2019-09-08] MEDS ORDERED: *HR* Promethazine 25 MG/ML VIAL IVP PRN (14:46)
[2019-09-08] MEDS ORDERED: Naloxone 0.4 MG/ML INJ IVP PRN (14:46)
[2019-09-08] MEDS ORDERED: traMADol 50 MG TABLET PO PRN (14:46)
[2019-09-08] MEDS ORDERED: Acetaminophen 325 MG TABLET PO PRN (14:46)
[2019-09-08] MEDS ORDERED: Dextrose Gel 15 GM/37.5 ML TUBE PO PRN ×2 (14:51)
[2019-09-08] MEDS ORDERED: D5% in Water 1,000 ML IVC PRN (14:51)
[2019-09-08] MEDS ORDERED: *HR* Dextrose 50 % in Water (Syg) 50 ML SYRINGE IVP PRN (14:51)
[2019-09-08] MEDS: Insulin LISPRO 300 UNITS/3 ML VIAL SQ SCH ×2 (16:59→20:55)
[2019-09-08] MEDS: *HR* Heparin 5,000 UNIT/ML VIAL SQ SCH (17:06)
[2019-09-09 02:31] LABS: Hematocrit 37.2 % (37.5-50.1); Hemoglobin 12.1 g/dL (12.9-16.9); Mean Corpuscular HGB Conc 32.5 g/dL (31.6-35.5); Mean Corpuscular Hemoglobin 29.2 pg (28.0-33.3); Mean Corpuscular Volume 89.6 fL (83.0-100.0); Mean Platelet Volume 9.7 fL (9.4-12.4); Platelet Count 195 K/mcL (140-400); Red Blood Count 4.15 M/mcL (4.19-5.50); White Blood Count 5.2 K/mcL (4.3-11.1)
[2019-09-09 02:58] LABS: Alanine Aminotransferase 13 Units/L (7-52); Albumin 3.6 g/dL (3.5-5.7); Albumin/Globulin Ratio 1.7 (1.1-2.2); Alkaline Phosphatase 45 Units/L (34-104); Aspartate Amino Transferase 10 Units/L (13-39); BUN/Creatinine Ratio 16 (6-26); Bilirubin,Total 0.3 mg/dL (0.3-1.0); Blood Urea Nitrogen 20 mg/dL (8-23); Calcium 9.3 mg/dL (8.6-10.3); Carbon Dioxide 25 mEq/L (23-29); Chloride 106 mEq/L (98-107); Chol/HDL Ratio 3.2 (0-4.9); Cholesterol 128 mg/dL (< 200); Globulin 2.1 g/dL (2.4-3.5); Glucose 94 mg/dL (70-105); HDL Cholesterol 40 mg/dL (40-59); LDL Cholesterol,Calculated 61 mg/dL (0-99); Magnesium 1.8 mg/dL (1.6-2.6); Osmolality,Calculated 286 (280-300); Phosphorous 3.4 mg/dL (2.7-4.5); Potassium 3.9 mEq/L (3.5-5.1); Sodium 137 mEq/L (136-145); Total Protein 5.7 g/dL (6.4-8.9); Triglycerides 133 mg/dL (< 150); eGFR For African Americans > 60 (> 60); eGFR For Non-African Americans 56 (> 60)
[2019-09-09] MEDS: *HR* Heparin 5,000 UNIT/ML VIAL SQ SCH ×2 (05:09→16:16)
[2019-09-09] MEDS: Insulin LISPRO 300 UNITS/3 ML VIAL SQ SCH ×4 (08:21→21:35)
[2019-09-09] MEDS ORDERED: Nitroglycerin 0.4 MG TAB.SUBL SL PRN (10:17)
[2019-09-09] MEDS ORDERED: Sucralfate 1 GM TABLET PO PRN (10:17)
[2019-09-09] MEDS ORDERED: NON-FORMULARY MEDICATION 1 EACH EACH (Omega-3/Dha/Epa/Fish Oil [Fish Oil 1,000 Mg Softgel] PO SCH (10:30)
[2019-09-09] MEDS: Aspirin 81 MG TAB.CHEW PO SCH (10:44)
[2019-09-09] MEDS: Ranolazine 500 MG TAB.ER.12H PO SCH ×2 (10:45→21:34)
[2019-09-09] MEDS: Cholecalciferol (D-3) 1,000 UNIT (25MCG) TABLET PO SCH (10:45)
[2019-09-09] MEDS: Famotidine 20 MG TABLET PO SCH ×2 (10:45→16:16)
[2019-09-09] MEDS: amLODIPine 5 MG TABLET PO SCH (10:45)
[2019-09-09] MEDS: Budesonide/Formoterol 160/4.5 1 PUFF INH IH SCH ×2 (14:12→20:48)
[2019-09-10] MEDS: *HR* Heparin 5,000 UNIT/ML VIAL SQ SCH (05:32)
[2019-09-10 07:57] VITALS: BP 137/80
[2019-09-10] MEDS: Budesonide/Formoterol 160/4.5 1 PUFF INH IH SCH (08:10)
[2019-09-10] MEDS: Insulin LISPRO 300 UNITS/3 ML VIAL SQ SCH (09:56)
[2019-09-10] MEDS: Cholecalciferol (D-3) 1,000 UNIT (25MCG) TABLET PO SCH (10:23)
[2019-09-10] MEDS: Aspirin 81 MG TAB.CHEW PO SCH (10:24)
[2019-09-10] MEDS: Famotidine 20 MG TABLET PO SCH (10:25)
[2019-09-10] MEDS: Ranolazine 500 MG TAB.ER.12H PO SCH (10:25)
[2019-09-10] MEDS: amLODIPine 5 MG TABLET PO SCH (10:25)
== END 2019-09-10 11:15 | disposition home or self-care (01) ==
LOC: 3BNU
PROVIDERS: ADMIT Internal Medicine; ATTEND Internal Medicine

== ENCOUNTER 2019-12-26 22:40 | Observation (INO) ==
[2019-12-27] MEDS ORDERED: Naloxone 0.4 MG/ML INJ IVP PRN (00:10)
[2019-12-27] MEDS ORDERED: Nitroglycerin 0.4 MG TAB.SUBL SL PRN (01:36)
[2019-12-27] MEDS: *HR* Heparin 5,000 UNIT/ML VIAL SQ SCH ×3 (04:49→20:01)
[2019-12-27] MEDS: Nitroglycerin 0.3 MG PATCH.TD24 TD SCH (04:50)
[2019-12-27 05:12] LABS: Hematocrit 38.1 % (37.5-50.1); Hemoglobin 12.5 g/dL (12.9-16.9); Mean Corpuscular HGB Conc 32.8 g/dL (31.6-35.5); Mean Corpuscular Hemoglobin 29.4 pg (28.0-33.3); Mean Corpuscular Volume 89.6 fL (83.0-100.0); Mean Platelet Volume 9.4 fL (9.4-12.4); Platelet Count 195 K/mcL (140-400); Red Blood Count 4.25 M/mcL (4.19-5.50); Red Cell Distribution Width 14.6 % (11.5-14.5); White Blood Count 4.1 K/mcL (4.3-11.1)
[2019-12-27 05:15] LABS: Prothrombin Time 11.6 Seconds (9.4-12.1)
[2019-12-27 05:18] LABS: Activated Partial Thrombo Time 33.7 Seconds (26.0-36.0)
[2019-12-27 05:39] LABS: Troponin I < 0.03 ng/mL (< 0.04)
[2019-12-27 05:40] LABS: BUN/Creatinine Ratio 18 (6-26); Blood Urea Nitrogen 20 mg/dL (8-23); Calcium 9.1 mg/dL (8.6-10.3); Carbon Dioxide 22 mEq/L (23-29); Chloride 107 mEq/L (98-107); Cholesterol 130 mg/dL (< 200); Glucose 87 mg/dL (70-105); HDL Cholesterol 43 mg/dL (40-59); LDL Cholesterol,Calculated 71 mg/dL (0-99); Osmolality,Calculated 288 (280-300); Potassium 3.8 mEq/L (3.5-5.1); Sodium 138 mEq/L (136-145); Triglycerides 82 mg/dL (< 150); eGFR For African Americans > 60 (> 60); eGFR For Non-African Americans > 60 (> 60)
[2019-12-27] MEDS: Cholecalciferol (D-3) 1,000 UNIT (25MCG) TABLET PO SCH (08:05)
[2019-12-27] MEDS: Aspirin 81 MG TAB.CHEW PO SCH (08:05)
[2019-12-27] MEDS: Ranolazine 500 MG TAB.ER.12H PO SCH ×2 (08:05→20:01)
[2019-12-27] MEDS: carvediloL 6.25 MG TABLET PO SCH ×2 (08:05→17:07)
[2019-12-27] MEDS: amLODIPine 5 MG TABLET PO SCH (08:05)
[2019-12-27] MEDS: lisinopriL 20 MG TABLET PO SCH (08:05)
[2019-12-27] MEDS: Budesonide/Formoterol 160/4.5 1 PUFF INH IH SCH ×2 (10:39→22:03)
[2019-12-27] MEDS ORDERED: *HR* Dextrose 50 % in Water (Syg) 50 ML SYRINGE IVP PRN (17:30)
[2019-12-27] MEDS ORDERED: Dextrose Gel 15 GM/37.5 ML TUBE PO PRN ×2 (17:30)
[2019-12-27] MEDS ORDERED: D5% in Water 1,000 ML IVC PRN (17:30)
[2019-12-27] MEDS: Famotidine 20 MG TABLET PO SCH (20:01)
[2019-12-28] MEDS: Nitroglycerin 0.3 MG PATCH.TD24 TD SCH (05:30)
[2019-12-28] MEDS: *HR* Heparin 5,000 UNIT/ML VIAL SQ SCH (05:30)
[2019-12-28] MEDS ORDERED: Acetaminophen 325 MG TABLET PO PRN ×2 (05:36→05:37)
[2019-12-28 05:54] LABS: Mean Corpuscular HGB Conc 32.4 g/dL (31.6-35.5); Mean Corpuscular Volume 89.4 fL (83.0-100.0); Mean Platelet Volume 9.3 fL (9.4-12.4); Platelet Count 201 K/mcL (140-400); Red Blood Count 4.14 M/mcL (4.19-5.50); Red Cell Distribution Width 14.7 % (11.5-14.5); White Blood Count 4.4 K/mcL (4.3-11.1)
[2019-12-28 07:20] VITALS: BP 129/76
[2019-12-28] MEDS ORDERED: Insulin LISPRO 300 UNITS/3 ML VIAL SQ SCH (07:30)
[2019-12-28] MEDS: amLODIPine 5 MG TABLET PO SCH (07:57)
[2019-12-28] MEDS: carvediloL 6.25 MG TABLET PO SCH (07:57)
[2019-12-28] MEDS: Cholecalciferol (D-3) 1,000 UNIT (25MCG) TABLET PO SCH (07:57)
[2019-12-28] MEDS: Aspirin 81 MG TAB.CHEW PO SCH (07:57)
[2019-12-28] MEDS: lisinopriL 20 MG TABLET PO SCH (07:58)
[2019-12-28] MEDS: Famotidine 20 MG TABLET PO SCH (07:58)
[2019-12-28] MEDS: Ranolazine 500 MG TAB.ER.12H PO SCH (07:58)
[2019-12-28] MEDS: Budesonide/Formoterol 160/4.5 1 PUFF INH IH SCH (09:04)
== END 2019-12-28 10:50 | disposition home or self-care (01) ==
LOC: 3BNU
PROVIDERS: ADMIT Internal Medicine; ATTEND Internal Medicine

== ENCOUNTER 2021-12-23 00:01 | Observation (INO) ==
[2021-12-24] MEDS ORDERED: Perflutren Lipid Microsphere 1.3 ML in 0.9 % Sodium Chloride 8.7 ML IVP PRN (05:06)
[2021-12-24] MEDS ORDERED: Nitroglycerin 0.4 MG TAB.SUBL SL PRN (05:09)
[2021-12-24] MEDS ORDERED: Morphine Sulfate 2 MG/ML SYRINGE IVP PRN (05:10)
[2021-12-24] MEDS ORDERED: D5% in Water 1,000 ML IVC PRN (05:11)
[2021-12-24] MEDS ORDERED: *HR* Dextrose 50 % in Water (Syg) 50 ML SYRINGE IVP PRN (05:11)
[2021-12-24] MEDS ORDERED: Dextrose Gel 15 GM/37.5 ML TUBE PO PRN ×2 (05:11)
[2021-12-24] MEDS ORDERED: Ondansetron 4 MG/2 ML VIAL IVP PRN (05:15)
[2021-12-24] MEDS ORDERED: Naloxone 0.4 MG/ML INJ IVP PRN (05:15)
[2021-12-24] MEDS ORDERED: *HR* Heparin 5,000 UNIT/ML VIAL IVP ONE (05:34)
[2021-12-24] MEDS ORDERED: *HR* Heparin 5,000 UNIT/ML VIAL IVP PRN ×2 (05:34)
[2021-12-24] MEDS ORDERED: Heparin 25,000UNIT/250ML 1/2NS 25,000 UNIT/250 ML IV.SOLN IVC SCH (05:45)
[2021-12-24] MEDS ORDERED: Acetaminophen 325 MG TABLET PO PRN (06:00)
[2021-12-24] MEDS: Insulin LISPRO 300 UNITS/3 ML VIAL SUBQ SCH ×4 (06:05→23:29)
[2021-12-24 06:12] LABS: Estimated Average Glucose 123 mg/dl; Hemoglobin A1C 5.9 %
[2021-12-24 06:13] LABS: Basophils % 0.4 %; Eosinophils # 0.1 K/mcL (0.0-0.6); Eosinophils % 1.8 %; Hematocrit 36.4 % (37.5-50.1); Hemoglobin 12.1 g/dL (12.9-16.9); Immature Granulocytes % 0.5 % (0-4); Lymphocytes # 1.2 K/mcL (0.6-4.6); Lymphocytes % 21.2 %; Mean Corpuscular HGB Conc 33.2 g/dL (31.6-35.5); Mean Corpuscular Hemoglobin 29.2 pg (28.0-33.3); Mean Corpuscular Volume 87.7 fL (83.0-100.0); Mean Platelet Volume 9.6 fL (9.4-12.4); Monocytes # 0.4 K/mcL (0.0-1.3); Monocytes % 6.3 %; Platelet Count 197 K/mcL (140-400); Red Blood Count 4.15 M/mcL (4.19-5.50); Segmented Neutrophils % 69.8 %; White Blood Count 5.7 K/mcL (4.3-11.1)
[2021-12-24 06:21] LABS: Heparin anti-factor XA UFH < 0.04 IU/mL (0.30-0.70); INR 1.1; Prothrombin Time 11.8 Seconds (9.4-12.1)
[2021-12-24 06:23] LABS: Activated Partial Thrombo Time 32.8 Seconds (26.0-36.0)
[2021-12-24] MEDS ORDERED: Regadenoson 0.4 MG/5 ML SYRINGE IVP ONE ×2 (06:29→12:12)
[2021-12-24 06:31] LABS: Alanine Aminotransferase 14 Units/L (7-52); Albumin 3.8 g/dL (3.5-5.7); Albumin/Globulin Ratio 1.8 (1.1-2.2); Alkaline Phosphatase 46 Units/L (34-104); Aspartate Amino Transferase 15 Units/L (13-39); BUN/Creatinine Ratio 16 (6-26); Bilirubin,Total 0.4 mg/dL (0.3-1.0); Blood Urea Nitrogen 19 mg/dL (8-23); Calcium 8.9 mg/dL (8.6-10.3); Carbon Dioxide 24 mEq/L (23-29); Chloride 105 mEq/L (98-107); Chol/HDL Ratio 2.7 (0-4.9); Cholesterol 131 mg/dL (< 200); Globulin 2.1 g/dL (2.4-3.5); Glucose 97 mg/dL (70-105); HDL Cholesterol 49 mg/dL (40-59); LDL Cholesterol,Calculated 61 mg/dL (< 100); Magnesium 1.7 mg/dL (1.6-2.6); Osmolality,Calculated 284 (280-300); Potassium 3.9 mEq/L (3.5-5.1); Sodium 136 mEq/L (136-145); Total Protein 5.9 g/dL (6.4-8.9); Triglycerides 104 mg/dL (< 150); eGFR For African Americans > 60 (> 60); eGFR For Non-African Americans > 60 (> 60)
[2021-12-24 06:42] LABS: % Iron Saturation 20 % (20-55); Iron 72 mcg/dL (65-175); Transferrin 263 mg/dL (203-362)
[2021-12-24 07:00] LABS: Ferritin 21 ng/mL (20-250)
[2021-12-24] MEDS: Budesonide/Formoterol 160/4.5 1 PUFF INH IH SCH ×2 (07:51→20:47)
[2021-12-24] MEDS: Famotidine 20 MG TABLET PO SCH ×2 (09:18→20:20)
[2021-12-24] MEDS: Aspirin Enteric Coated 81 MG Tablet PO SCH (09:18)
[2021-12-24] MEDS: amLODIPine 5 MG TABLET PO SCH (09:18)
[2021-12-24] MEDS: lisinopriL 20 MG TABLET PO SCH (09:19)
[2021-12-24] MEDS: Ranolazine 500 MG TAB.ER.12H PO SCH ×2 (09:19→20:20)
[2021-12-24] MEDS: Cholecalciferol (D-3) 1,000 UNIT (25MCG) TABLET PO SCH (09:19)
[2021-12-24 10:28] LABS: Folate 10.6 ng/mL (3.0-16.0)
[2021-12-24] MEDS: carvediloL 6.25 MG TABLET PO SCH (16:33)
[2021-12-25 02:57] LABS: Hematocrit 37.2 % (37.5-50.1); Hemoglobin 11.9 g/dL (12.9-16.9); Mean Corpuscular Hemoglobin 28.1 pg (28.0-33.3); Mean Corpuscular Volume 87.9 fL (83.0-100.0); Mean Platelet Volume 9.4 fL (9.4-12.4); Platelet Count 188 K/mcL (140-400); Red Blood Count 4.23 M/mcL (4.19-5.50); Red Cell Distribution Width 14.6 % (11.5-14.5); White Blood Count 5.2 K/mcL (4.3-11.1)
[2021-12-25 03:14] LABS: BUN/Creatinine Ratio 17 (6-26); Blood Urea Nitrogen 21 mg/dL (8-23); Calcium 9.2 mg/dL (8.6-10.3); Carbon Dioxide 25 mEq/L (23-29); Chloride 106 mEq/L (98-107); Glucose 91 mg/dL (70-105); Osmolality,Calculated 287 (280-300); Sodium 137 mEq/L (136-145); eGFR For African Americans > 60 (> 60); eGFR For Non-African Americans 60 (> 60)
[2021-12-25] MEDS: Insulin LISPRO 300 UNITS/3 ML VIAL SUBQ SCH ×3 (05:22→17:41)
[2021-12-25] MEDS: Budesonide/Formoterol 160/4.5 1 PUFF INH IH SCH (07:17)
[2021-12-25] MEDS: Aspirin Enteric Coated 81 MG Tablet PO SCH (09:08)
[2021-12-25] MEDS: amLODIPine 5 MG TABLET PO SCH (09:08)
[2021-12-25] MEDS: Ranolazine 500 MG TAB.ER.12H PO SCH (09:08)
[2021-12-25] MEDS: carvediloL 6.25 MG TABLET PO SCH ×2 (09:08→16:57)
[2021-12-25] MEDS: Famotidine 20 MG TABLET PO SCH (09:08)
[2021-12-25] MEDS: Cholecalciferol (D-3) 1,000 UNIT (25MCG) TABLET PO SCH (09:08)
[2021-12-25] MEDS: lisinopriL 20 MG TABLET PO SCH (09:08)
[2021-12-25 15:09] VITALS: BP 110/60; PULSE 67; TEMP 98.1; O2SAT 97
== END 2021-12-25 17:43 | disposition home or self-care (01) ==
LOC: 3BNU
PROVIDERS: ADMIT Student in an Organized Health Care Education/Training Program; ATTEND Student in an Organized Health Care Education/Training Program

== ENCOUNTER 2022-08-17 11:45 | Observation (INO) ==
[2022-08-17] MEDS ORDERED: Naloxone 0.4 MG/ML INJ IVP PRN (13:31)
[2022-08-17] MEDS ORDERED: Nitroglycerin 0.4 MG TAB.SUBL SL PRN (17:37)
[2022-08-17] MEDS: Budesonide/Formoterol 160/4.5 1 PUFF INH IH SCH (20:24)
[2022-08-17] MEDS: Ranolazine 500 MG TAB.ER.12H PO SCH (20:45)
[2022-08-17] MEDS: *HR* Heparin 5,000 UNIT/ML VIAL SQ SCH (20:46)
[2022-08-17] MEDS: carvediloL 6.25 MG TABLET PO SCH (21:02)
[2022-08-17 23:28] VITALS: O2SAT 95
[2022-08-18] MEDS: *HR* Heparin 5,000 UNIT/ML VIAL SQ SCH (05:55)
[2022-08-18 06:29] VITALS: BP 138/77; PULSE 67; TEMP 97.8
[2022-08-18 06:33] LABS: Basophils % 0.5 %; Eosinophils # 0.1 K/mcL (0.0-0.6); Eosinophils % 3.2 %; Hematocrit 35.3 % (37.5-50.1); Hemoglobin 11.5 g/dL (12.9-16.9); Immature Granulocytes % 0.2 % (0-4); Lymphocytes # 1.2 K/mcL (0.6-4.6); Lymphocytes % 26.4 %; Mean Corpuscular HGB Conc 32.6 g/dL (31.6-35.5); Mean Corpuscular Hemoglobin 27.8 pg (28.0-33.3); Mean Corpuscular Volume 85.3 fL (83.0-100.0); Monocytes # 0.3 K/mcL (0.0-1.3); Monocytes % 7.2 %; Neutrophils # 2.8 K/mcL (1.6-8.9); Platelet Count 195 K/mcL (140-400); Red Blood Count 4.14 M/mcL (4.19-5.50); Segmented Neutrophils % 62.5 %; White Blood Count 4.4 K/mcL (4.3-11.1)
[2022-08-18 06:55] LABS: Calcium 8.7 mg/dL (8.6-10.3); Potassium 3.9 mEq/L (3.5-5.1)
[2022-08-18] MEDS: Budesonide/Formoterol 160/4.5 1 PUFF INH IH SCH (07:15)
[2022-08-18] MEDS: Ranolazine 500 MG TAB.ER.12H PO SCH (08:07)
[2022-08-18] MEDS: carvediloL 6.25 MG TABLET PO SCH (08:07)
[2022-08-18] MEDS ORDERED: Famotidine 20 MG TABLET PO SCH (09:00)
[2022-08-18] MEDS ORDERED: Aspirin Enteric Coated 81 MG Tablet PO SCH (09:00)
[2022-08-18] MEDS ORDERED: lisinopriL 20 MG TABLET PO SCH (09:00)
[2022-08-18] MEDS ORDERED: amLODIPine 5 MG TABLET PO SCH (09:00)
== END 2022-08-18 11:38 | disposition home or self-care (01) ==
LOC: 3BNU → SUATTDRO 13:16
PROVIDERS: ADMIT Internal Medicine; ATTEND Internal Medicine